=== PATIENT | female | born 1930 | race Caucasian/White ===

== ENCOUNTER 2020-04-27 20:24 | Inpatient (IN) | payer MEDICARE, MEDICAID ==
[~2020-04-27] VITALS: Ht 157.5 cm; Wt 64.4 kg
[~2020-04-27 20:24] MED LIST: ASPIR 8181 MG ORAL; DONEPEZIL HCL5 M2 ORAL; FAMOTIDINE20 MG ORAL; GEMFIBROZIL600 MG ORAL; GLIPIZIDE5 MG ORAL; GLUCOTROL5 MG ORAL; HYDROCHLOROTH12.5 MG ORAL; LANTUS5 UNITS SUBQ; LEVOTHYROXINE25 MCG ORAL; LOPRESSOR25 M1 ORAL; METOPROLOL SUCC25 MG ORAL; NIACIN500 M2 ORAL; NORVASC5 MG ORAL; OYSTER SHELL 51 EAC1 PO; VENLAFAXINE HC150 MG ORAL; ZOCOR20 M1 ORAL
[2020-04-27 20:30] VITALS: BP 156/62
--- NOTE | 2020-04-27 21:10 | NUR ---
Sister No called, left her phone numbers: [phone](cell) [phone](home). She also states that she is the deceision maker and would like to be notified of any changes. She also mentioned that patients is a DNR. At this pont I had connected her to to confirm DNR status. verified -DNR.
--- NOTE | 2020-04-27 21:26 | NUR ---
ED Nurse Note: Xray at bedside
--- NOTE | 2020-04-27 21:36 | Emergency Room Report ---
History of Present Illness General Chief Complaint: Generalized Weakness Source: Patient, Family Member, EMS Present Illness HPI 89-year-old female with past medical history of hypertension, diabetes, hypothyroidism, CKD, dyslipidemia presents from [facility] for syncope. Patient is DNR. Conservator is Sister Ankur ([phone]; [phone]) Patient states that earlier she felt dizziness and almost passed out. Also had a gradual headache and was nauseous but states that her symptoms have improved. EMS gave 100 cc NS bolus prior to arrival here due to hypotension SBP 80mmHg. Patient denies head trauma, slurred speech, nausea, vomiting, chest pain, back pain, abdominal pain, melena, hematochezia, dysuria, hematuria, flank pain, rash, neck pain or any other symptoms. Denies any changes to her medications. Patient is on Coreg 6.25 mg p.o. The patient's symptoms were gradual onset, severity was moderate, duration since 1 day. Quality: Generally weak Past medical history: Hypothyroidism, hypertension, dyslipidemia, dementia, CKD Past surgical history: Denies Smoking: Denies Alcohol use: Denies Drug use: Denies Review of systems: CONST: No fevers or chills, No night sweats PULMONARY: No productive cough, No shortness of breath CARDIAC: No chest pain, No palpitations GI: No vomiting, No diarrhea , No melena_or_BRBPR : No dysuria, No hematuria, No discharge NEURO: No new_focal_weakness_or_numbness, No confusion, No vision changes 14 point Review of Systems is otherwise negative except per HPI Physical Exam: GENERAL: Awake_alert_ nontoxic, no acute distress Spo2 97% on RA -normal EYES: Extraocular muscles are intact. Conjunctivae clear. Lids without swelling. Pale appearing ENT: External nose and ear normal_in_appearance. Oropharynx clear. Head_atraumatic, dry_oral_mucosa NECK: No JVD. No meningismus. No thyromegaly. Supple. Trachea midline RESP: Normal respiratory effort. Symmetric rise. No stridor. Clear_to_auscultation_No_rales_No_wheezes CARDIAC: bradycardic and regular rhytm. No_significant pedal edema. ABDOMEN: Soft. Nondistended. Nontender_No_rebound_or_guarding. MSK: Normal muscle tone, without rigidity. Extremities without asymmetric deformity or swelling. SKIN: Warm and dry. No visible cyanosis or pallor NEUROLOGIC: Alert, oriented x1. Motor_and_sensation_grossly_intact. No truncal ataxia. Gait_normal Psych: Normal mood and affect, normal judgment and insight - COORDINATION OF CARE Case was discussed with: Patient , Patient's Family , Patient's Physician Any labs and imaging that were ordered were interpreted as part of the medical decision making: Medical Decision Making/Plan: Differential diagnosis for the patients symptoms include , malignant arrhythmias, obstructive heart disease (critical aortic stenosis, hypertrophic cardiomyopathy), acute anemia, severe dehydration, electrolyte abnormalities, among others. Patient's exam shows she is generally weak, however has no focal neurologic deficits. EKG shows bradycardia with no signs of malignant arrhythmia such as Brugada syndrome, delta wave, epsilon wave, significant heart block, or QTc >500. CXR shows no acute disease. Troponin is negativex1. BNP was mildly elevated therefore will start mild diuresis in ED. Will have to avoid nitro in the setting of her hypotension prior to arrival. Furthermore, lipase was found to be high, however patient is not complaining of abdominal pain. Her abdominal exam is completely non tender. The patient denies any external blood loss and has no significant pallor or evidence of acute anemia as a cause of their symptoms. Hemoglobin is not severely low, and acute blood transfusion is not indicated. In addition, the patient has no loud murmur or evidence of significant obstructive heart disease, symptoms are not in the setting of exertion. The patient is neurologically intact, with normal cerebellar exam, without any evidence of central vertigo as a cause of their symptoms. They appear well hydrated without any evidence of severe dehydration or acute hypovolemia. However, given the patients risk factors, the patient would benefit from admission to observation for continuous cardiac monitoring, given the possibility of cardiac syncope. She is SF syncope criteria positive due to hypotension and cardiac hx. I spoke with Dr. Otoole, and reviewed the patients presentation, workup, results, and treatment. They will admit the patient for further care and evaluation, and assume care of the patient at this time. Allergies: Coded Allergies: PENICILLINS (Unverified Allergy, Unknown, 11/06/14) COVID-19 Screening Contact w/high risk pt: No Experienced COVID-19 symptoms?: No COVID-19 Testing performed EDUCATIONAL SPEECH LANGUAGE CLINICIAN: No Patient History Last Menstrual Period: UNK Now: No Nursing Documentation-PMH Hx Cardiac Problems: No Hx Hypertension: Yes Hx Diabetes: Yes Hx Cancer: No Hx Gastrointestinal Problems: No Hx Neurological Problems: No Physical Exam Vital Signs Date Time Temp Pulse Resp B/P (MAP) Pulse Ox O2 Delivery O2 Flow Rate FiO2 04/27/20 20:19 98.1 56 18 156/62 (93) 97 Room Air Sp02 EP Interpretation: reviewed, normal Medical Decision Making Diagnostic Impression: Primary Impression: Episode of generalized weakness Additional Impressions: Syncope Symptomatic bradycardia Pancreatitis Anemia Hypomagnesemia CKD (chronic kidney disease) EKG Diagnostic Results Troponin ordered: Yes When was troponin ordered?: Apr 27, 2020 THOR Pollard 12-lead EKG (interpreted by ) Time: 2045 Indication: Rhythm analysis Tracing visualized and Interpreted by me. Rhythm: Sinus bradycardia Rate: 56 bpm QTc: 443 Morphology: No_significant_ST_elevations_or_depressions, No STEMI Impression: Sinus bradycardia. Q waves V1 through V4 Rhythm Strip Diag. Results Rhythm Strip Time: 21:36 EP Interpretation: yes Rate: 56 Rhythm: no PVC's, no ectopy - Bradycardia Chest X-Ray Diagnostic Results Chest X-Ray Diagnostic Results : THOR Pollard Chest X-Ray: Views: [ 1 ] view(s) Indication: Syncope Findings: Normal heart size. Mediastinum normal. No Pna Impression: No acute disease The X-ray(s) were independently viewed and interpreted contemporaneously Electronically signed by Arely dunbar DO CT/MRI/US Diagnostic Results CT/MRI/US Diagnostic Results : Impression CT Head no Contrast EXAM: CT Head Without Intravenous Contrast COMPARISON: Head CT 11/06/2014 FINDINGS: Brain: No intracranial hemorrhage, mass-effect, or edema. Parenchymal atrophy. Mild chronic microvascular ischemic changes. Ventricles: Unremarkable. Bones/joints: Skull hyperostosis. No fracture. Soft tissues: Unremarkable. Sinuses: Unremarkable as visualized. Mastoid air cells: Unremarkable as visualized. IMPRESSION: 1. No acute intracranial abnormality. 2. Parenchymal atrophy. Mild chronic microvascular ischemic changes. Reevaluation Time: 22:20 Last Vital Signs Date Time Temp Pulse Resp B/P (MAP) Pulse Ox O2 Delivery O2 Flow Rate FiO2 04/27/20 20:19 98.1 56 18 156/62 (93) 97 Room Air Status: improved Disposition: ADMITTED INPATIENT Admit Decision Time: 22:20 Condition: Stable Referrals: NOT CHOSEN IPA/,REFERRING (PCP) Arely Arambula D.O. Apr 27, 2020 21:36
--- NOTE | 2020-04-27 21:38 | Diagnostic Imaging Report ---
EXAM: XR Chest, 1 View CLINICAL HISTORY: WEAK TECHNIQUE: Frontal view of the chest. COMPARISON: Chest x-ray 11/06/2014 FINDINGS: Lungs: Unremarkable. No consolidation. Pleural space: No pleural effusion. No pneumothorax. Heart: Unremarkable. No cardiomegaly. Bones/joints: Chronic fracture deformity of the right clavicle.. IMPRESSION: No acute cardiopulmonary abnormality.
--- NOTE | 2020-04-27 21:47 | NUR ---
ED Nurse Note: Pt to CT
--- NOTE | 2020-04-27 22:00 | NUR ---
ED Nurse Note: Pt back from CT
--- NOTE | 2020-04-27 22:12 | Diagnostic Imaging Report ---
EXAM: CT Head Without Intravenous Contrast CLINICAL HISTORY: SYNCOPE TECHNIQUE: Axial computed tomography images of the head/brain without intravenous contrast. CTDI is 53.4 mGy and DLP is 1018.8 mGy-cm. One or more of the following dose reduction techniques were used: automated exposure control, adjustment of the mA and/or kV according to patient size, use of iterative reconstruction technique. COMPARISON: Head CT 11/06/2014 FINDINGS: Brain: No intracranial hemorrhage, mass-effect, or edema. Parenchymal atrophy. Mild chronic microvascular ischemic changes. Ventricles: Unremarkable. Bones/joints: Skull hyperostosis. No fracture. Soft tissues: Unremarkable. Sinuses: Unremarkable as visualized. Mastoid air cells: Unremarkable as visualized. IMPRESSION: 1. No acute intracranial abnormality. 2. Parenchymal atrophy. Mild chronic microvascular ischemic changes.
[2020-04-27 22:20] LABS: BASOPHILS % (AUTO) 0.8 % (0.0-2.0); EOSINOPHILS % (AUTO) 1.9 % (0.0-3.0); HEMATOCRIT 28.7 % (37.0-47.0); HEMOGLOBIN 9.7 G/DL (12.0-16.0); LYMPHOCYTES % (AUTO) 17.4 % (20.0-45.0); MEAN CORPUSCULAR VOLUME 90 FL (80-99); MONOCYTES % (AUTO) 10.4 % (1.0-10.0); NEUTROPHILS % (AUTO) 69.6 % (45.0-75.0); PLATELET COUNT 151 K/UL (150-450); RED BLOOD COUNT 3.19 M/UL (4.20-5.40); RED CELL DISTRIBUTION WIDTH 12.9 % (11.6-14.8); WHITE BLOOD COUNT 6.2 K/UL (4.8-10.8)
[2020-04-27 22:38] LABS: ALANINE AMINOTRANSFERASE 90 U/L (12-78); ALBUMIN 2.9 G/DL (3.4-5.0); ALKALINE PHOSPHATASE 105 U/L (46-116); ASPARTATE AMINO TRANSFERASE 96 U/L (15-37); BILIRUBIN,TOTAL 0.4 MG/DL (0.2-1.0); BLOOD UREA NITROGEN 29 mg/dL (7-18); CALCIUM 9.2 MG/DL (8.5-10.1); CARBON DIOXIDE 25 MMOL/L (21-32); CHLORIDE 103 MMOL/L (98-107); CREATINE KINASE 32 U/L (26-308); CREATININE 1.5 MG/DL (0.55-1.30); POTASSIUM 4.2 MMOL/L (3.5-5.1); SODIUM 137 MMOL/L (136-145)
[2020-04-27] MEDS ORDERED: LORazepam Inj 2mg/ml 1ml IV ONE (22:45)
[2020-04-27 23:18] LABS: APPEARANCE,URINE CLEAR; BILIRUBIN, URINE NEGATIVE (NEGATIVE); COLOR,URINE YELLOW; GLUCOSE, URINE (UA) NEGATIVE (NEGATIVE); KETONES,URINE NEGATIVE (NEGATIVE); LEUKOCYTE ESTERASE ,URINE NEGATIVE (NEGATIVE); NITRITE,URINE NEGATIVE (NEGATIVE); PH,URINE 6 (4.5-8.0); PROTEIN,URINE 3+ (NEGATIVE); UROBILINOGEN,URINE NORMAL MG/DL (0.0-1.0)
--- NOTE | 2020-04-28 | NUR ---
ED Nurse Note: Pt resting in bed with eyes closed, non-labored breathing, no signs of distress. will continue to monitor
--- NOTE | 2020-04-28 02:00 | NUR ---
ED Nurse Note: Pt resting in bed with eyes closed, non-labored breathing, no signs of distress, will continue to monitor
--- NOTE | 2020-04-28 05:30 | NUR ---
ED Nurse Note: Pt changed and cleaned, skin intact, will continue to monitor
--- NOTE | 2020-04-28 07:19 | NUR ---
ED Nurse Note: received report from Shahrzad ORTEZ. pt is calm and resting in bed, vss, on security monitor.
[2020-04-28 07:20] VITALS: BP 151/75
--- NOTE | 2020-04-28 07:47 | NUR ---
ED Nurse Note: gave report to Orquidea RN
--- NOTE | 2020-04-28 07:50 | NUR ---
TRANSFER TO FLOOR: Patient transferred to [facility] via gurney as ordered, per dr. gaxiola. Report given to Orquidea ORTEZ. Belongings sent with patient
[2020-04-28 08:00] VITALS: BP 178/71
--- NOTE | 2020-04-28 08:00 | NUR ---
NURSE NOTES: Admitted patient from ED, report given by Ketan ORTEZ. Transferred to bed. engine monitor placed. IV line on right hand g22 intact and patent. Oriented to room and call light. Vital signs taken and recorded. A and o x 1-2, confused. Skin intact, with redness on perianal area, pictures taken. Belongings accounted for. HOB elevated. Bed locked in low position. Call light within reach. Will continue plan of care.
[2020-04-28] MEDS ORDERED: HydrALAZINE 25mg tab ORAL ONE (08:30)
--- NOTE | 2020-04-28 09:00 | NUR ---
NURSE NOTES: Swabs for MRSA, CRE, VRE done and sent to lab.
[2020-04-28] MEDS ORDERED: Acetaminophen 500mg (ES) tab ORAL PRN (10:45)
--- NOTE | 2020-04-28 11:00 | NUR ---
NURSE NOTES: Patient refused lab draw, Dr Otoole made aware and insisted to try again. Lab made aware, spoke with Abby.
[2020-04-28 12:00] VITALS: BP 129/81
--- NOTE | 2020-04-28 13:00 | NUR ---
NURSE NOTES: Patient non compliant with care, gets up and walks in the hallway saying she wants to go home. Noted with resistive behavior and angry tone of voice. Dr Otoole made aware. Charge nurse aware.
[2020-04-28] MEDS ORDERED: Haloperidol 5mg/ml Inj IM PRN (13:45)
--- NOTE | 2020-04-28 13:57 | History & Physical ---
History and Physical History & Physicial [id number] David Otoole MD Apr 28, 2020 13:57
--- NOTE | 2020-04-28 15:08 | Consultation ---
History of Present Illness General Date patient seen: Apr 28, 2020 Reason for Hospitalization: Generalized Weakness Present Illness HPI 89 year old female admitted for evaluation of abdominal pain noted to have abnormal lft's and elevated lipase with associated abdominal pain. surgery called to evaluate and assist with care. case discussed with pcp patient state she was eating well but recently had a meal and felt discomfort which has gotten a bit better since admission. currently no nv/f/c. labs reviewed. states she wants to get into a chair Allergies: Coded Allergies: PENICILLINS (Unverified Allergy, Unknown, 11/06/14) COVID-19 Screening Contact w/high risk pt: No Experienced COVID-19 symptoms?: No Medication History Scheduled Amlodipine Besylate (Norvasc), 5 MG ORAL BID Aspirin* (Aspir 81*), 81 MG ORAL DAILY, (Reported) Calcium Carbonate/Vitamin D3 (Oyster Shell 500 Mg + Vit D Tb), 1 EACH PO DAILY, (Reported) Donepezil Hcl* (Donepezil Hcl*), 5 MG ORAL DAILY, (Reported) Famotidine* (Pepcid 20mg tablet*), 20 MG ORAL DAILY, (Reported) Gemfibrozil (Gemfibrozil*), 600 MG ORAL BID, (Reported) Glipizide* (Glucotrol*), 5 MG ORAL BID Insulin Glargine (Lantus), 0 SUBQ BEDTIME, (Reported) Levothyroxine Sodium* (Levothyroxine Sodium*), 25 MCG ORAL DAILY, (Reported) Metoprolol Succinate* (Metoprolol Succinate*), 25 MG ORAL DAILY, (Reported) Metoprolol Tartrate (Metoprolol Tartrate), 25 MG ORAL Q12HR Simvastatin (Zocor), 20 MG ORAL BEDTIME, (Reported) Venlafaxine Hcl* (Venlafaxine Hcl Er*), 150 MG ORAL DAILY, (Reported) Patient History Limited by: age, medical condition History Provided By: Medical Record, PMD Healthcare decision maker Resuscitation status Advanced Directive on File Past Medical/Surgical History Past Medical/Surgical History: (1) Arrhythmia (2) Fall (3) CHF (congestive heart failure) (4) Hypomagnesemia (5) Anemia (6) CKD (chronic kidney disease) (7) Episode of generalized weakness (8) Pancreatitis (9) Symptomatic bradycardia (10) Syncope Review of Systems Review of Symptoms General ROS: no weight loss or fever Psychological ROS: no depression or mood changes, no memory loss Ophthalmic ROS: no visual changes or eye irritation ENT ROS: no nasal congestion, hearing loss, dizziness Allergy and Immunology ROS: no allergic symptoms or urticaria Hematological and Lymphatic ROS: no swollen glands, unusual bleeding or bruising Endocrine ROS: no polyuria, polydipsia, weight changes, temperature intolerance Respiratory ROS: no cough, shortness of breath, or wheezing Cardiovascular ROS: no chest pain or dyspnea on exertion Gastrointestinal ROS: denies abdominal pain, bright red blood in stool. Musculoskeletal ROS: no myalgias or arthralgias Neurological ROS: no TIA or stroke symptoms Dermatological ROS: no new or changing skin lesions, rashes or pruritis limited Physical Exam Physical Exam General appearance: alert, no distress, appears stated age Head: Normocephalic, without obvious abnormality, atraumatic Eyes: conjunctivae/corneas clear. PERRL, EOM's intact. Fundi benign Throat: Lips, mucosa, and tongue normal. Teeth and gums normal Neck: supple, symmetrical, trachea midline, no adenopathy, thyroid: not enlarged, symmetric, no tenderness/mass/nodules, no carotid bruit and no JVD Lungs: clear to auscultation bilaterally Heart: regular rate and rhythm, S1, S2 normal, no murmur, click, rub or gallop Abdomen: soft, non-tender. Bowel sounds normal. No masses, no organomegaly Extremities: extremities normal, atraumatic, no cyanosis or edema Pulses: 2+ and symmetric Skin: Skin color, texture, turgor normal. No rashes or lesions Neurologic: Grossly normal Last 24 Hour Vital Signs Date Time Temp Pulse Resp B/P (MAP) Pulse Ox O2 Delivery O2 Flow Rate FiO2 04/28/20 12:00 96.7 61 19 129/81 (97) 97 04/28/20 11:12 63 178/71 04/28/20 09:00 Room Air 04/28/20 08:42 Room Air 04/28/20 08:35 178/71 04/28/20 08:00 61 04/28/20 08:00 98.6 63 16 178/71 (106) 98 04/28/20 07:50 98.3 74 16 151/75 99 Room Air 04/28/20 07:20 98.3 74 16 151/75 99 Room Air 04/27/20 22:37 73 14 161/70 100 04/27/20 20:30 56 18 Room Air 04/27/20 20:30 98.1 56 18 156/62 97 Room Air 04/27/20 20:19 98.1 56 18 156/62 (93) 97 Room Air Laboratory Tests Test 04/27/20 21:15 04/27/20 22:20 White Blood Count 6.2 K/UL (4.8-10.8) Red Blood Count 3.19 M/UL (4.20-5.40) L Hemoglobin 9.7 G/DL (12.0-16.0) L Hematocrit 28.7 % (37.0-47.0) L Mean Corpuscular Volume 90 FL (80-99) Mean Corpuscular Hemoglobin 30.5 PG (27.0-31.0) Mean Corpuscular Hemoglobin Concent 33.9 G/DL (32.0-36.0) Red Cell Distribution Width 12.9 % (11.6-14.8) Platelet Count 151 K/UL (150-450) Mean Platelet Volume 7.7 FL (6.5-10.1) Neutrophils (%) (Auto) 69.6 % (45.0-75.0) Lymphocytes (%) (Auto) 17.4 % (20.0-45.0) L Monocytes (%) (Auto) 10.4 % (1.0-10.0) H Eosinophils (%) (Auto) 1.9 % (0.0-3.0) Basophils (%) (Auto) 0.8 % (0.0-2.0) Sodium Level 137 MMOL/L (136-145) Potassium Level 4.2 MMOL/L (3.5-5.1) Chloride Level 103 MMOL/L (98-107) Carbon Dioxide Level 25 MMOL/L (21-32) Blood Urea Nitrogen 29 mg/dL (7-18) H Creatinine 1.5 MG/DL (0.55-1.30) H Estimat Glomerular Filtration Rate 32.9 mL/min (>60) Glucose Level 178 MG/DL (74-106) H Calcium Level 9.2 MG/DL (8.5-10.1) Magnesium Level 1.0 MG/DL (1.8-2.4) L Total Bilirubin 0.4 MG/DL (0.2-1.0) Aspartate Amino Transf (AST/SGOT) 96 U/L (15-37) H Alanine Aminotransferase (ALT/SGPT) 90 U/L (12-78) H Alkaline Phosphatase 105 U/L (46-116) Total Creatine Kinase 32 U/L (26-308) Troponin I 0.018 ng/mL (0.000-0.056) Pro-B-Type Natriuretic Peptide 1310 pg/mL (0-125) H Total Protein 5.8 G/DL (6.4-8.2) L Albumin 2.9 G/DL (3.4-5.0) L Globulin 2.9 g/dL Albumin/Globulin Ratio 1.0 (1.0-2.7) Lipase 1180 U/L (73-393) H Thyroid Stimulating Hormone (TSH) 1.458 uiU/mL (0.358-3.740) Urine Color Yellow Urine Appearance Clear Urine pH 6 (4.5-8.0) Urine Specific [place] 1.010 (1.005-1.035) Urine Protein 3+ (NEGATIVE) H Urine Glucose (UA) Negative (NEGATIVE) Urine Ketones Negative (NEGATIVE) Urine Blood Negative (NEGATIVE) Urine Nitrite Negative (NEGATIVE) Urine Bilirubin Negative (NEGATIVE) Urine Urobilinogen Normal MG/DL (0.0-1.0) Urine Leukocyte Esterase Negative (NEGATIVE) Urine RBC 0-2 /HPF (0 - 2) Urine WBC 0-2 /HPF (0 - 2) Urine Squamous Epithelial Cells Few /LPF (NONE/OCC) Urine Bacteria Few /HPF (NONE) Height (Feet): 5 Height (Inches): 2.00 Weight (Pounds): 142 Medications Current Medications Medications (Trade) Dose Ordered Sig/Allen Route PRN Reason Start Time Stop Time Status Last Admin Dose Admin Acetaminophen (Tylenol) 500 mg Q4H PRN ORAL Mild Pain (Pain Scale 1-3) 04/28/20 10:45 05/28/20 10:44 Amlodipine Besylate (Norvasc) 5 mg BID ORAL 04/28/20 11:00 05/28/20 10:59 04/28/20 11:12 Aspirin (Ecotrin) 81 mg DAILY ORAL 04/29/20 09:00 06/13/20 08:59 Docusate Sodium (Colace) 100 mg TWICE A DAY ORAL 04/28/20 18:00 05/28/20 17:59 Haloperidol Lactate (Haldol) 2 mg Q4H PRN IM Agitation 04/28/20 13:45 06/12/20 13:44 Levothyroxine Sodium (Synthroid) 25 mcg DAILY ORAL 04/29/20 09:00 05/29/20 08:59 Magnesium Sulfate 100 ml @ 100 mls/hr Q1H IVPB 04/28/20 14:00 04/28/20 17:59 04/28/20 14:08 Pantoprazole (Protonix) 40 mg BID ORAL 04/28/20 11:00 05/29/20 10:59 04/28/20 11:11 Venlafaxine HCl (Effexor-XR) 150 mg DAILY ORAL 04/29/20 09:00 07/28/20 08:59 Assessment/Plan Problem List: (1) CHF (congestive heart failure) ICD Codes: I50.9 - Heart failure, unspecified SNOMED: 81334564 (2) Hypomagnesemia ICD Codes: E83.42 - Hypomagnesemia SNOMED: 473061588 (3) Anemia ICD Codes: D64.9 - Anemia, unspecified SNOMED: 721107288 (4) CKD (chronic kidney disease) ICD Codes: N18.9 - Chronic kidney disease, unspecified SNOMED: 480064712 (5) Episode of generalized weakness ICD Codes: R53.1 - Weakness SNOMED: 09620458, 659310266 (6) Arrhythmia ICD Codes: I49.9 - Cardiac arrhythmia, unspecified SNOMED: 33030648 (7) Pancreatitis Assessment & Plan: 89F with pancreatitis and elevated lft's etiology of pancreatitis work up npo iv fluids iv abx US abd ordered trend labs will follow with recs thank you ICD Codes: K85.90 - Acute pancreatitis without necrosis or infection, unspecified SNOMED: 38439758 (8) Syncope ICD Codes: R55 - Syncope and collapse SNOMED: 346486841, 372733749 (9) Fall ICD Codes: W19.XXXA - Unspecified fall, initial encounter SNOMED: 1980101 (10) Symptomatic bradycardia ICD Codes: R00.1 - Bradycardia, unspecified SNOMED: 33784709, 098100605 Geoff Welsh Apr 28, 2020 15:08
--- NOTE | 2020-04-28 15:29 | Cardiac Electrophysiology PN ---
Subjective Subjective [id number] Objective Last 24 Hour Vital Signs Date Time Temp Pulse Resp B/P (MAP) Pulse Ox O2 Delivery O2 Flow Rate FiO2 04/28/20 12:00 96.7 61 19 129/81 (97) 97 04/28/20 11:12 63 178/71 04/28/20 09:00 Room Air 04/28/20 08:42 Room Air 04/28/20 08:35 178/71 04/28/20 08:00 61 04/28/20 08:00 98.6 63 16 178/71 (106) 98 04/28/20 07:50 98.3 74 16 151/75 99 Room Air 04/28/20 07:20 98.3 74 16 151/75 99 Room Air 04/27/20 22:37 73 14 161/70 100 04/27/20 20:30 56 18 Room Air 04/27/20 20:30 98.1 56 18 156/62 97 Room Air 04/27/20 20:19 98.1 56 18 156/62 (93) 97 Room Air Laboratory Tests Test 04/27/20 21:15 04/27/20 22:20 White Blood Count 6.2 K/UL (4.8-10.8) Red Blood Count 3.19 M/UL (4.20-5.40) L Hemoglobin 9.7 G/DL (12.0-16.0) L Hematocrit 28.7 % (37.0-47.0) L Mean Corpuscular Volume 90 FL (80-99) Mean Corpuscular Hemoglobin 30.5 PG (27.0-31.0) Mean Corpuscular Hemoglobin Concent 33.9 G/DL (32.0-36.0) Red Cell Distribution Width 12.9 % (11.6-14.8) Platelet Count 151 K/UL (150-450) Mean Platelet Volume 7.7 FL (6.5-10.1) Neutrophils (%) (Auto) 69.6 % (45.0-75.0) Lymphocytes (%) (Auto) 17.4 % (20.0-45.0) L Monocytes (%) (Auto) 10.4 % (1.0-10.0) H Eosinophils (%) (Auto) 1.9 % (0.0-3.0) Basophils (%) (Auto) 0.8 % (0.0-2.0) Sodium Level 137 MMOL/L (136-145) Potassium Level 4.2 MMOL/L (3.5-5.1) Chloride Level 103 MMOL/L (98-107) Carbon Dioxide Level 25 MMOL/L (21-32) Blood Urea Nitrogen 29 mg/dL (7-18) H Creatinine 1.5 MG/DL (0.55-1.30) H Estimat Glomerular Filtration Rate 32.9 mL/min (>60) Glucose Level 178 MG/DL (74-106) H Calcium Level 9.2 MG/DL (8.5-10.1) Magnesium Level 1.0 MG/DL (1.8-2.4) L Total Bilirubin 0.4 MG/DL (0.2-1.0) Aspartate Amino Transf (AST/SGOT) 96 U/L (15-37) H Alanine Aminotransferase (ALT/SGPT) 90 U/L (12-78) H Alkaline Phosphatase 105 U/L (46-116) Total Creatine Kinase 32 U/L (26-308) Troponin I 0.018 ng/mL (0.000-0.056) Pro-B-Type Natriuretic Peptide 1310 pg/mL (0-125) H Total Protein 5.8 G/DL (6.4-8.2) L Albumin 2.9 G/DL (3.4-5.0) L Globulin 2.9 g/dL Albumin/Globulin Ratio 1.0 (1.0-2.7) Lipase 1180 U/L (73-393) H Thyroid Stimulating Hormone (TSH) 1.458 uiU/mL (0.358-3.740) Urine Color Yellow Urine Appearance Clear Urine pH 6 (4.5-8.0) Urine Specific [place] 1.010 (1.005-1.035) Urine Protein 3+ (NEGATIVE) H Urine Glucose (UA) Negative (NEGATIVE) Urine Ketones Negative (NEGATIVE) Urine Blood Negative (NEGATIVE) Urine Nitrite Negative (NEGATIVE) Urine Bilirubin Negative (NEGATIVE) Urine Urobilinogen Normal MG/DL (0.0-1.0) Urine Leukocyte Esterase Negative (NEGATIVE) Urine RBC 0-2 /HPF (0 - 2) Urine WBC 0-2 /HPF (0 - 2) Urine Squamous Epithelial Cells Few /LPF (NONE/OCC) Urine Bacteria Few /HPF (NONE) Jose J Hurley MD Apr 28, 2020 15:29
[2020-04-28] MEDS ORDERED: MUCINEX600 MG PO (15:49)
[2020-04-28] MEDS ORDERED: METFORMIN HCL500 M1 ORAL (15:49)
[2020-04-28] MEDS ORDERED: HYDROCHLOROTHIA50 MG ORAL (15:49)
[2020-04-28] MEDS ORDERED: ATORVASTATIN CA80 MG ORAL (15:49)
[2020-04-28] MEDS ORDERED: MULTIVITAMINS1 EA13 ORAL (15:49)
[2020-04-28] MEDS ORDERED: METOPROLOL TART25 MG ORAL (15:49)
[2020-04-28] MEDS ORDERED: CARVEDILOL6.25 MG ORAL (15:49)
[2020-04-28] MEDS ORDERED: ATIVAN0.5 MG ORAL (15:49)
[2020-04-28] MEDS ORDERED: LOSARTAN POTASS50 MG ORAL (15:49)
[2020-04-28] MEDS ORDERED: DIABETIC T100 MG/5 M PO (15:49)
[2020-04-28] MEDS ORDERED: CITALOPRAM HBR40 M1 ORAL (15:49)
[2020-04-28] MEDS ORDERED: ACETAMINOPHEN325 M1 ORAL (15:49)
[2020-04-28] MEDS ORDERED: POTASSIUM CHLO20 ME1 ORAL (15:49)
[2020-04-28] MEDS ORDERED: ELIQUIS2.5 MG ORAL (15:49)
[2020-04-28 16:00] VITALS: BP 123/80
--- NOTE | 2020-04-28 16:14 | History and Physical Report ---
DATE OF ADMISSION: 04/27/2020 LOCATION: The patient is seen in room 219. HISTORY OF PRESENT ILLNESS AND CHIEF COMPLAINT: The patient is 89-year-old female, a resident of [facility]. She was brought in by paramedics for generalized weakness. Past history of the patient is significant for hypertension, diabetes, hypothyroidism, chronic kidney disease, and dyslipidemia. The patient is DNR and has a conservator named Sister Danielle. The patient apparently felt dizzy earlier today and passed out and she had some headaches and had nausea, but her symptoms improved after the paramedics gave her some IV bolus of saline. At that time, the patient had hypotension of 80 mmHg. The patient was denying slurred speech, nausea, vomiting, chest pain, back pain, and after initial evaluation in the emergency room, the patient admitted for further management. COVID-19 screening has been negative when done in the [facility] and in the emergency room, the blood pressure flora after initial IV bolus to 156/62. ALLERGIES: Allergies of the patient are to penicillin. MEDICATIONS: Medication list includes calcium, Aricept, Pepcid, gemfibrozil, Glucotrol, metoprolol, insulin, Zocor, amlodipine, aspirin, Synthroid, and venlafaxine which is Effexor. PHYSICAL EXAMINATION: GENERAL: The patient is not in any distress. She is confused. VITAL SIGNS: Temperature 96.7, pulse rate 61, and blood pressure earlier was 178/71 down to 129/81. HEENT: Head is normocephalic. Sclerae not icteric. NECK: Neck is full. No thyromegaly. LUNGS: Decreased breath sounds over the bases. HEART: Somewhat bradycardic. ABDOMEN: Obese and nontender. EXTREMITIES: Lower extremities, no edema. DJD changes are present. LABORATORY DATA: Hemoglobin 9.7, white BC 6.2. Lipase 1180. TSH 1.45. Electrolytes normal. Creatinine 1.5, BUN 29, and magnesium level is 1. IMPRESSION: This is an 89-year-old female, who is a resident of [facility], brought into emergency room for generalized weakness and at that time was hypotensive with blood pressure of 80 mmHg systolic and bradycardia, heart rate of 50s. After the bolus of normal saline, the blood pressure improved. The patient also has lipase of 1100; however, abdominal examination is normal. The patient most likely has dehydration since also the BUN and creatinine are elevated. Nevertheless, the patient is known to have underlying kidney disease. The patient's serum magnesium is also low and the patient has anemia and blood sugar of 178 with history of diabetes. The patient also has history of low cognition, dementia, and hypothyroidism. PLAN: I held the beta-donnie and started the patient on amlodipine and hydralazine for blood pressure control. Meanwhile, we will give magnesium supplement, slow hydration, and with regard to the high lipase and bradycardia, I have asked the proper consultants to evaluate the patient. According to how the patient's condition evolves, we will make the proper changes in our future management. David Otoole M.D. DR: Lexa JOB#: [id number] CC:
--- NOTE | 2020-04-28 16:45 | Consultation ---
DATE OF CONSULTATION: 04/28/2020 CARDIOLOGY CONSULTATION CONSULTING PHYSICIAN: Jose J Hurley MD REFERRING PHYSICIAN: David Otoole MD REASON FOR CONSULTATION: bradycardia and presyncope. HISTORY OF PRESENT ILLNESS: Patient is a very pleasant 89, lady with history of hypertension, diabetes, hypothyroidism, dyslipidemia, and chronic kidney disease who was transferred from [facility] for a syncopal episode. Patient's conservator is sister, Danielle at #[phone] and at #[phone]. Patient apparently was brought to the emergency room as she felt dizzy and almost passed out. Paramedics gave the patient normal saline bolus as the blood pressure was in the 80s. Patient is on Coreg 6.25 mg b.i.d. Patient was bradycardic with heart was mostly in the 50s. Patient was admitted and Cardiology consultation was obtained for further evaluation and management. REVIEW OF SYSTEMS: Negative other than what was mentioned in the history of present illness. PAST MEDICAL HISTORY: As mentioned above. FAMILY HISTORY: Noncontributory. SOCIAL HISTORY: She lives in a fpc. Does not smoke or drink alcohol. PHYSICAL EXAMINATION: VITAL SIGNS: Blood pressure is 129/81, was as high as 172/71, pulse 61, respirations 18, temperature 96.7. HEAD AND NECK: Showed no JVD. LUNGS: Clear. CARDIOVASCULAR: Shows regular S1 and S2 with no gallop or murmur. ABDOMEN: Soft. EXTREMITIES: No pitting edema. LABORATORY AND DIAGNOSTIC DATA: EKG shows sinus bradycardia in the 50s. Labs show white count of 6.2, hemoglobin 9.7, hematocrit 28.7, and platelet count 151. Sodium 137, potassium 4.2, BUN of 29, creatinine 1.5, and glucose of 178. The first troponin is negative. BNP is 1310. ASSESSMENT AND PLAN: 1. Symptomatic bradycardia. Patient was on Coreg that was discontinued. We will watch patient on telemetry and hopefully this will resolve. We will also get an echocardiogram to evaluate for ejection fraction and wall motion abnormality. 2. Hypertension. Patient is on amlodipine 5 mg b.i.d. 3. Hypothyroidism, on Synthroid. 4. Renal failure and azotemia, on IV fluids per Dr. Otoole. 5. Hypomagnesemia. 6. Generalized weakness. 7. Elevated BNP, possible congestive heart failure. Echocardiogram is pending. 8. Elevated liver function tests, possible pancreatitis. Further evaluation by Dr. Welsh. Thank you very much for allowing me to participate in the care of this patient. Please do not hesitate to contact me for any questions regarding my evaluation. Jose J Hurley M.D. DR: VINAY JOB#: [id number] CC:
--- NOTE | 2020-04-28 17:08 | NUR ---
NURSE NOTES: Patient found without IV line. For reinsertion.
[2020-04-28] MEDS: Docusate 100mg cap ORAL SCH (17:13)
--- NOTE | 2020-04-28 17:41 | NUR ---
NURSE NOTES: IV line reinserted to left hand g20, wrapped with kerlix.
--- NOTE | 2020-04-28 18:12 | NUR ---
NURSE HAND-OFF REPORT: Important Events on Shift:admission; pulling out patient monitor and IV line, uncooperative Patient Status: confused Diet: cardiac Pending Orders: 2d echo, abd US 04/29 Pending Results/Labs:mrsa, vre, cre Pending MD notification: Latest Vital Signs: Temperature 98.8 , Pulse 87 , B/P 123 /80 , Respiratory Rate 19 , O2 SAT 96 , Room Air, O2 Flow Rate . Vital Sign Comment: EKG Rhythm: Sinus Rhythm Rhythm change?: N MD Notified?: - MD Response: Latest Snider Fall Score: 35 Fall Risk: Medium Risk Safety Measures: Call light Within Reach, Bed Alarm Zone 1, Side Rails Side Rails x2, Bed position Low and Locked. Fall Precautions: Yellow Socks . Addendum: 04/28/20 at 1939 by Orquidea Boo RN HAND-OFF: Report given to Marguerite ORTEZ.
--- NOTE | 2020-04-28 19:43 | NUR ---
NURSE NOTES: Patient received from Orquidea RN. Patient in stable condition. Comfortable in bed, sleeping. No s/s of distress. No c/o pain. IV site patent and intact on Left Hand 20G. Noted to be NPO @ midnight for abdominal ultrasound tomorrow. Saturating well on room air. Bed in lowest position and locked. Call light and bedside table within reach. Bed alarm on. Will continue plan of care.
[2020-04-28 20:00] VITALS: BP 120/57
[2020-04-29] VITALS: BP 123/63
[2020-04-29 04:00] VITALS: BP 152/67
[2020-04-29 08:00] VITALS: BP 169/55
--- NOTE | 2020-04-29 08:30 | General Progress Note ---
Subjective Date patient seen: Apr 29, 2020 ROS Limited/Unobtainable: Yes Allergies: Coded Allergies: PENICILLINS (Unverified Allergy, Unknown, 11/06/14) Objective Last 24 Hour Vital Signs Date Time Temp Pulse Resp B/P (MAP) Pulse Ox O2 Delivery O2 Flow Rate FiO2 04/29/20 04:00 69 04/29/20 04:00 96.5 69 18 152/67 (95) 97 04/29/20 00:00 60 04/29/20 00:00 97.2 60 18 123/63 (83) 97 04/28/20 21:00 Room Air 04/28/20 20:00 97.5 64 18 120/57 (78) 96 04/28/20 20:00 64 04/28/20 17:12 87 123/80 04/28/20 16:00 98.8 87 19 123/80 (94) 96 04/28/20 16:00 66 04/28/20 12:00 96.7 61 19 129/81 (97) 97 04/28/20 12:00 66 04/28/20 11:12 63 178/71 04/28/20 09:00 Room Air 04/28/20 08:42 Room Air 04/28/20 08:35 178/71 Intake and Output 04/28/20 04/29/20 19:00 07:00 Intake Total 0 ml Balance 0 ml Intake Oral 0 ml # Voids 1 Current Medications Medications (Trade) Dose Ordered Sig/Allen Route PRN Reason Start Time Stop Time Status Last Admin Dose Admin Acetaminophen (Tylenol) 500 mg Q4H PRN ORAL Mild Pain (Pain Scale 1-3) 04/28/20 10:45 05/28/20 10:44 Amlodipine Besylate (Norvasc) 5 mg BID ORAL 04/28/20 11:00 05/28/20 10:59 04/28/20 17:12 Aspirin (Ecotrin) 81 mg DAILY ORAL 04/29/20 09:00 06/13/20 08:59 Docusate Sodium (Colace) 100 mg TWICE A DAY ORAL 04/28/20 18:00 05/28/20 17:59 04/28/20 17:13 Haloperidol Lactate (Haldol) 2 mg Q4H PRN IM Agitation 04/28/20 13:45 06/12/20 13:44 04/28/20 15:27 Levothyroxine Sodium (Synthroid) 25 mcg DAILY ORAL 04/29/20 09:00 05/29/20 08:59 Pantoprazole (Protonix) 40 mg BID ORAL 04/28/20 11:00 05/29/20 10:59 04/28/20 17:12 Venlafaxine HCl (Effexor-XR) 150 mg DAILY ORAL 04/29/20 09:00 07/28/20 08:59 None of the blood work ordered for yesterday was drawn Height (Feet): 5 Height (Inches): 2.00 Weight (Pounds): 142 General Appearance: no apparent distress Cardiovascular: other - Variable rate Respiratory/Chest: decreased breath sounds Abdomen: distended Assessment/Plan Problem List: (1) Symptomatic bradycardia ICD Codes: R00.1 - Bradycardia, unspecified SNOMED: 07161891, 201280462 (2) CKD (chronic kidney disease) ICD Codes: N18.9 - Chronic kidney disease, unspecified SNOMED: 737798929 (3) Syncope ICD Codes: R55 - Syncope and collapse SNOMED: 202208753, 334544248 (4) Arrhythmia ICD Codes: I49.9 - Cardiac arrhythmia, unspecified SNOMED: 11382957 (5) Hypomagnesemia ICD Codes: E83.42 - Hypomagnesemia SNOMED: 893188443 (6) Anemia ICD Codes: D64.9 - Anemia, unspecified SNOMED: 370616706 Status Narrative 1. Symptomatic bradycardia. Patient was on Coreg that was discontinued. We will watch patient on telemetry and hopefully this will resolve. We will also get an echocardiogram to evaluate for ejection fraction and wall motion abnormality. 2. Hypertension. Patient is on amlodipine 5 mg b.i.d. 3. Hypothyroidism, on Synthroid. 4. Renal failure and azotemia, on IV fluids per Dr. Otoole. 5. Hypomagnesemia. 6. Generalized weakness. 7. Elevated BNP, possible congestive heart failure. Echocardiogram is pending. 8. Elevated liver function tests, possible pancreatitis. Further evaluation by Dr. Welsh. Assessment/Plan: Discussed with RN and the need to do the blood draw today as soon as possible Continue per consultants Will discuss the plan with the patient's responsible republican Patient remains DNR Continue per orders David Otoole MD Apr 29, 2020 08:29
[2020-04-29] MEDS: Docusate 100mg cap ORAL SCH ×2 (08:46→17:43)
[2020-04-29] MEDS: Venlafaxine XR 150mg cap ORAL SCH (08:46)
[2020-04-29] MEDS: Aspirin EC 81mg tab ORAL SCH (08:46)
[2020-04-29] MEDS: Levothyroxine 25mcg tab ORAL SCH (08:47)
[2020-04-29 08:49] LABS: BASOPHILS % (AUTO) 0.6 % (0.0-2.0); EOSINOPHILS % (AUTO) 2.2 % (0.0-3.0); HEMATOCRIT 30.8 % (37.0-47.0); HEMOGLOBIN 10.7 G/DL (12.0-16.0); LYMPHOCYTES % (AUTO) 20.2 % (20.0-45.0); MEAN CORPUSCULAR VOLUME 87 FL (80-99); MONOCYTES % (AUTO) 8.5 % (1.0-10.0); NEUTROPHILS % (AUTO) 68.6 % (45.0-75.0); PLATELET COUNT 175 K/UL (150-450); RED BLOOD COUNT 3.56 M/UL (4.20-5.40); RED CELL DISTRIBUTION WIDTH 14.6 % (11.6-14.8); WHITE BLOOD COUNT 6.3 K/UL (4.8-10.8)
[2020-04-29 09:17] LABS: ALBUMIN 3.2 G/DL (3.4-5.0); BILIRUBIN,TOTAL 0.6 MG/DL (0.2-1.0); CALCIUM 9.2 MG/DL (8.5-10.1); CREATININE 1.5 MG/DL (0.55-1.30); POTASSIUM 3.4 MMOL/L (3.5-5.1)
--- NOTE | 2020-04-29 11:30 | NUR ---
NURSE NOTES: Received pt in bed, AAO x 1. On RA. IV on L hand 20g noted, with SL. Bed in the lowest and locked. Call light within reach. Will continue to monitor
--- NOTE | 2020-04-29 11:32 | NUR ---
NURSE HAND-OFF REPORT: Important Events on Shift:[] Patient Status: [Stable] Diet: [Cardiac DIet] Pending Orders: [] Pending Results/Labs:[] Pending MD notification:[] Latest Vital Signs: Temperature 98.5 , Pulse 82 , B/P 169 /55 , Respiratory Rate 18 , O2 SAT 97 , Room Air, O2 Flow Rate . Vital Sign Comment: [] EKG Rhythm: Sinus Rhythm Rhythm change?: N MD Notified?: - MD Response: Latest Snider Fall Score: 35 Fall Risk: Medium Risk Safety Measures: Call light Within Reach, Bed Alarm Zone 1, Side Rails Side Rails x2, Bed position Low and Locked. Fall Precautions: Yellow Socks Report given to [Antonio ORTEZ].
[2020-04-29 11:36] LABS: PHOSPHORUS 4.2 MG/DL (2.5-4.9)
[2020-04-29 11:48] LABS: CHOLESTEROL 121 MG/DL (< 200); FERRITIN 39 NG/ML (8-388); GAMMA GLUTAMYL TRANSPEPTIDASE 53 U/L (5-85); HDL CHOLESTEROL 37 MG/DL (40-60); TRIGLYCERIDES 132 MG/DL (30-150)
[2020-04-29 12:00] VITALS: BP 170/56
[2020-04-29 12:18] LABS: % IRON SATURATION 15 % (15-50); IRON 44 ug/dL (50-175); TOTAL IRON BINDING CAPACITY 297 ug/dL (250-450)
--- NOTE | 2020-04-29 13:03 | Surgery Progress Note ---
Surgery Progress Note Subjective Symptoms: improved, tolerating diet, voiding well, passing flatus Additional Comments no abd pain hungry Objective Last 24 Hour Vital Signs Date Time Temp Pulse Resp B/P (MAP) Pulse Ox O2 Delivery O2 Flow Rate FiO2 04/29/20 12:00 98.2 65 18 170/56 (94) 96 04/29/20 12:00 67 04/29/20 09:00 Room Air 04/29/20 08:47 82 169/55 04/29/20 08:00 98.5 62 18 169/55 (93) 97 04/29/20 07:42 60 04/29/20 04:00 69 04/29/20 04:00 96.5 69 18 152/67 (95) 97 04/29/20 00:00 60 04/29/20 00:00 97.2 60 18 123/63 (83) 97 04/28/20 21:00 Room Air 04/28/20 20:00 97.5 64 18 120/57 (78) 96 04/28/20 20:00 64 04/28/20 17:12 87 123/80 04/28/20 16:00 98.8 87 19 123/80 (94) 96 04/28/20 16:00 66 I&O Intake and Output 04/28/20 04/29/20 19:00 07:00 Intake Total 0 ml Balance 0 ml Intake Oral 0 ml # Voids 1 Cardiovascular: RSR Respiratory: clear Abdomen: soft, non-tender, present bowel sounds, non-distended Extremities: no edema Laboratory Tests Test 04/29/20 07:50 White Blood Count 6.3 K/UL (4.8-10.8) Red Blood Count 3.56 M/UL (4.20-5.40) L Hemoglobin 10.7 G/DL (12.0-16.0) L Hematocrit 30.8 % (37.0-47.0) L Mean Corpuscular Volume 87 FL (80-99) Mean Corpuscular Hemoglobin 30.2 PG (27.0-31.0) Mean Corpuscular Hemoglobin Concent 34.8 G/DL (32.0-36.0) Red Cell Distribution Width 14.6 % (11.6-14.8) Platelet Count 175 K/UL (150-450) Mean Platelet Volume 8.0 FL (6.5-10.1) Neutrophils (%) (Auto) 68.6 % (45.0-75.0) Lymphocytes (%) (Auto) 20.2 % (20.0-45.0) Monocytes (%) (Auto) 8.5 % (1.0-10.0) Eosinophils (%) (Auto) 2.2 % (0.0-3.0) Basophils (%) (Auto) 0.6 % (0.0-2.0) Sodium Level 139 MMOL/L (136-145) Potassium Level 3.4 MMOL/L (3.5-5.1) L Chloride Level 103 MMOL/L (98-107) Carbon Dioxide Level 28 MMOL/L (21-32) Anion Gap 8 mmol/L (5-15) Blood Urea Nitrogen 27 mg/dL (7-18) H Creatinine 1.5 MG/DL (0.55-1.30) H Estimat Glomerular Filtration Rate 32.9 mL/min (>60) Glucose Level 155 MG/DL (74-106) H Hemoglobin A1c 6.5 % (4.3-6.0) H Calcium Level 9.2 MG/DL (8.5-10.1) Phosphorus Level 4.2 MG/DL (2.5-4.9) Magnesium Level 2.1 MG/DL (1.8-2.4) Iron Level 44 ug/dL (50-175) L Total Iron Binding Capacity 297 ug/dL (250-450) Percent Iron Saturation 15 % (15-50) Unsaturated Iron Binding 253 ug/dL (112-346) Ferritin 39 NG/ML (8-388) Total Bilirubin 0.6 MG/DL (0.2-1.0) Gamma Glutamyl Transpeptidase 53 U/L (5-85) Aspartate Amino Transf (AST/SGOT) 92 U/L (15-37) H Alanine Aminotransferase (ALT/SGPT) 93 U/L (12-78) H Alkaline Phosphatase 112 U/L (46-116) Troponin I 0.000 ng/mL (0.000-0.056) Total Protein 6.3 G/DL (6.4-8.2) L Albumin 3.2 G/DL (3.4-5.0) L Globulin 3.1 g/dL Albumin/Globulin Ratio 1.0 (1.0-2.7) Triglycerides Level 132 MG/DL (30-150) Cholesterol Level 121 MG/DL (< 200) LDL Cholesterol 59 mg/dL (<100) HDL Cholesterol 37 MG/DL (40-60) L Cholesterol/HDL Ratio 3.3 (3.3-4.4) Lipase 251 U/L (73-393) Vitamin B12 Level 816 PG/ML (193-986) Folate 90.6 NG/ML (8.6-58.9) H Thyroid Stimulating Hormone (TSH) 0.520 uiU/mL (0.358-3.740) Free Thyroxine 1.38 NG/DL (0.76-1.46) Plan Problems: (1) CHF (congestive heart failure) (2) Hypomagnesemia (3) Anemia (4) CKD (chronic kidney disease) (5) Episode of generalized weakness (6) Arrhythmia (7) Pancreatitis Assessment & Plan: 89F with pancreatitis and elevated lft's etiology of pancreatitis work up npo iv fluids iv abx US abd ordered trend labs will follow with recs thank you pending US labs improved okay for diet as tolerated (8) Syncope (9) Fall (10) Symptomatic bradycardia Geoff Welsh Apr 29, 2020 13:03
--- NOTE | 2020-04-29 13:50 | Diagnostic Imaging Report ---
Indication: Abnormal liver function tests, abnormal renal function tests Technique: Jacinto-scale and duplex images of the upper abdomen were obtained Comparison: none Findings: Gallbladder demonstrates gallstones. No wall thickening or pericholecystic fluid. Sonographic Rinaldi's sign is negative. Common bile duct measures 6 mm in diameter. No intrahepatic biliary ductal dilatation. Liver demonstrates normal echogenicity, no focal abnormality. Portal vein and hepatic veins are patent. Pancreas is unremarkable. Spleen is unremarkable, demonstrates an accessory splenule or a lobule. Left kidney measures 10.2 cm in length. Right kidney measures 10.2 cm length. Both kidneys demonstrate normal echogenicity. There is no hydronephrosis. There are bilateral renal cysts. . Non-aneurysmal abdominal aorta . Impression: Cholelithiasis. Negative for dilated bile ducts Bilateral renal cysts
--- NOTE | 2020-04-29 14:29 | Cardiac Electrophysiology PN ---
Assessment/Plan Assessment/Plan 1. Symptomatic bradycardia. Patient was on Coreg that was discontinued. We will watch patient on telemetry and hopefully this will resolve. EF 65% 2. Hypertension. Patient is on amlodipine 5 mg b.i.d. 3. Hypothyroidism, on Synthroid. 4. Renal failure and azotemia, on IV fluids per Dr. Otoole. 5. Hypomagnesemia. 6. Generalized weakness. 7. Elevated BNP, possible congestive heart failure. EF 65% 8. Elevated liver function tests, possible pancreatitis. Further evaluation by Dr. Welsh. Subjective Subjective Refused labs yesterday but agreed to them today Objective Last 24 Hour Vital Signs Date Time Temp Pulse Resp B/P (MAP) Pulse Ox O2 Delivery O2 Flow Rate FiO2 04/29/20 12:00 98.2 65 18 170/56 (94) 96 04/29/20 12:00 67 04/29/20 09:00 Room Air 04/29/20 08:47 82 169/55 04/29/20 08:00 98.5 62 18 169/55 (93) 97 04/29/20 07:42 60 04/29/20 04:00 69 04/29/20 04:00 96.5 69 18 152/67 (95) 97 04/29/20 00:00 60 04/29/20 00:00 97.2 60 18 123/63 (83) 97 04/28/20 21:00 Room Air 04/28/20 20:00 97.5 64 18 120/57 (78) 96 04/28/20 20:00 64 04/28/20 17:12 87 123/80 04/28/20 16:00 98.8 87 19 123/80 (94) 96 04/28/20 16:00 66 Intake and Output 04/28/20 04/29/20 19:00 07:00 Intake Total 0 ml Balance 0 ml Intake Oral 0 ml # Voids 1 Laboratory Tests Test 04/29/20 07:50 White Blood Count 6.3 K/UL (4.8-10.8) Red Blood Count 3.56 M/UL (4.20-5.40) L Hemoglobin 10.7 G/DL (12.0-16.0) L Hematocrit 30.8 % (37.0-47.0) L Mean Corpuscular Volume 87 FL (80-99) Mean Corpuscular Hemoglobin 30.2 PG (27.0-31.0) Mean Corpuscular Hemoglobin Concent 34.8 G/DL (32.0-36.0) Red Cell Distribution Width 14.6 % (11.6-14.8) Platelet Count 175 K/UL (150-450) Mean Platelet Volume 8.0 FL (6.5-10.1) Neutrophils (%) (Auto) 68.6 % (45.0-75.0) Lymphocytes (%) (Auto) 20.2 % (20.0-45.0) Monocytes (%) (Auto) 8.5 % (1.0-10.0) Eosinophils (%) (Auto) 2.2 % (0.0-3.0) Basophils (%) (Auto) 0.6 % (0.0-2.0) Sodium Level 139 MMOL/L (136-145) Potassium Level 3.4 MMOL/L (3.5-5.1) L Chloride Level 103 MMOL/L (98-107) Carbon Dioxide Level 28 MMOL/L (21-32) Anion Gap 8 mmol/L (5-15) Blood Urea Nitrogen 27 mg/dL (7-18) H Creatinine 1.5 MG/DL (0.55-1.30) H Estimat Glomerular Filtration Rate 32.9 mL/min (>60) Glucose Level 155 MG/DL (74-106) H Hemoglobin A1c 6.5 % (4.3-6.0) H Calcium Level 9.2 MG/DL (8.5-10.1) Phosphorus Level 4.2 MG/DL (2.5-4.9) Magnesium Level 2.1 MG/DL (1.8-2.4) Iron Level 44 ug/dL (50-175) L Total Iron Binding Capacity 297 ug/dL (250-450) Percent Iron Saturation 15 % (15-50) Unsaturated Iron Binding 253 ug/dL (112-346) Ferritin 39 NG/ML (8-388) Total Bilirubin 0.6 MG/DL (0.2-1.0) Gamma Glutamyl Transpeptidase 53 U/L (5-85) Aspartate Amino Transf (AST/SGOT) 92 U/L (15-37) H Alanine Aminotransferase (ALT/SGPT) 93 U/L (12-78) H Alkaline Phosphatase 112 U/L (46-116) Troponin I 0.000 ng/mL (0.000-0.056) Total Protein 6.3 G/DL (6.4-8.2) L Albumin 3.2 G/DL (3.4-5.0) L Globulin 3.1 g/dL Albumin/Globulin Ratio 1.0 (1.0-2.7) Triglycerides Level 132 MG/DL (30-150) Cholesterol Level 121 MG/DL (< 200) LDL Cholesterol 59 mg/dL (<100) HDL Cholesterol 37 MG/DL (40-60) L Cholesterol/HDL Ratio 3.3 (3.3-4.4) Lipase 251 U/L (73-393) Vitamin B12 Level 816 PG/ML (193-986) Folate 90.6 NG/ML (8.6-58.9) H Thyroid Stimulating Hormone (TSH) 0.520 uiU/mL (0.358-3.740) Free Thyroxine 1.38 NG/DL (0.76-1.46) Microbiology Date/Time Source Procedure Growth Status 04/28/20 11:30 Rectum Received Objective HEAD AND NECK: Showed no JVD. LUNGS: Clear. CARDIOVASCULAR: Shows regular S1 and S2 with no gallop or murmur. ABDOMEN: Soft. EXTREMITIES: No pitting edema. Jose J Hurley MD Apr 29, 2020 14:29
--- NOTE | 2020-04-29 15:43 | NUR ---
CASE MANAGEMENT:REVIEW BIBA FROM [facility] SI: SYMPTOMATIC BRADYCARDIA. SYNCOPE ACUTE PANCREATITIS 98.1 56 18 156/62 97% ON RA H/H-9.7/28.7 BUN+29 CR+1.5 AST.ALT+96/90 LIPASE+1180 IS: IV ATIVAN IV LASIX HYDRALAZINE PO CT HEAD CHEST XRAY : TO TELEMETRY
[2020-04-29 16:00] VITALS: BP 111/56
[2020-04-29] MEDS: HydrALAZINE 25mg tab ORAL SCH (17:39)
--- NOTE | 2020-04-29 19:10 | NUR ---
NURSE HAND-OFF REPORT: Important Events on Shift: high BP on 170s, but stabilized. Patient Status: stable, DNR Diet: soft diet, easy chew Pending Orders: n/a Pending Results/Labs:n/a Pending MD notification:n/a Latest Vital Signs: Temperature 98.9 , Pulse 48 , B/P 111 /56 , Respiratory Rate 18 , O2 SAT 99 , Room Air, O2 Flow Rate . Vital Sign Comment: held 1800 BP meds due to decreased BP EKG Rhythm: Sinus Bradycardia Rhythm change?: N MD Notified?: - MD Response: Latest Snider Fall Score: 35 Fall Risk: Medium Risk Safety Measures: Call light Within Reach, Bed Alarm Zone 1, Side Rails Side Rails x2, Bed position Low and Locked. Fall Precautions: Yellow Socks Report given to PÉREZ Dixon.
--- NOTE | 2020-04-29 19:15 | NUR ---
NURSE NOTES: Pt received from PÉREZ Alvarez. Pt is resting comfortably in bed. Pt is A/Ox2 and ambulatory; Pt requires reorientation and is requested to stay in bed. Pt has cardiac monitoring SR and asymptomatic. Pt is breathing unlabored on RA and asymptomatic. Pt has LHand 20G SL patent with skin dry and intact. Pt takes crushed meds in applesauce or easy chew. Bed is locked in lowest position and call light is within reach. Will continue to monitor.
[2020-04-29 20:00] VITALS: BP 123/50
[2020-04-30] VITALS: BP 138/59
[2020-04-30 04:00] VITALS: BP 140/65
--- NOTE | 2020-04-30 07:29 | NUR ---
NURSE HAND-OFF REPORT: Important Events on Shift:Continued plan of care Patient Status: Stable Diet: Soft Diet Pending Orders: Pending Results/Labs:AM Labs Pending MD notification: Latest Vital Signs: Temperature 98.2 , Pulse 65 , B/P 140 /65 , Respiratory Rate 16 , O2 SAT 96 , Room Air, O2 Flow Rate . Vital Sign Comment: VSS EKG Rhythm: Sinus Rhythm Rhythm change?: N MD Notified?: - MD Response: Latest Snider Fall Score: 35 Fall Risk: Medium Risk Safety Measures: Call light Within Reach, Bed Alarm Zone 1, Side Rails Side Rails x2, Bed position Low and Locked. Fall Precautions: Yellow Socks Report given to PÉREZ Tomlinson.
--- NOTE | 2020-04-30 07:39 | NUR ---
NURSE NOTES: Pt received from Fahad ORTEZ, pt in bed sleeping, bed low and locked, call light within reach, no distress or SOB noted.
[2020-04-30 08:00] VITALS: BP 180/63
[2020-04-30 08:08] LABS: BASOPHILS % (AUTO) 0.6 % (0.0-2.0); EOSINOPHILS % (AUTO) 1.7 % (0.0-3.0); HEMATOCRIT 30.5 % (37.0-47.0); HEMOGLOBIN 10.3 G/DL (12.0-16.0); LYMPHOCYTES % (AUTO) 21.7 % (20.0-45.0); MEAN CORPUSCULAR VOLUME 88 FL (80-99); MONOCYTES % (AUTO) 8.2 % (1.0-10.0); NEUTROPHILS % (AUTO) 67.8 % (45.0-75.0); PLATELET COUNT 179 K/UL (150-450); RED BLOOD COUNT 3.45 M/UL (4.20-5.40); RED CELL DISTRIBUTION WIDTH 13.1 % (11.6-14.8); WHITE BLOOD COUNT 7.4 K/UL (4.8-10.8)
[2020-04-30 08:31] LABS: BILIRUBIN,TOTAL 0.6 MG/DL (0.2-1.0); CALCIUM 8.8 MG/DL (8.5-10.1); CREATININE 1.5 MG/DL (0.55-1.30); POTASSIUM 3.4 MMOL/L (3.5-5.1)
[2020-04-30] MEDS: Venlafaxine XR 150mg cap ORAL SCH (10:24)
[2020-04-30] MEDS: HydrALAZINE 25mg tab ORAL SCH ×3 (10:24→22:54)
[2020-04-30] MEDS: Aspirin EC 81mg tab ORAL SCH (10:24)
[2020-04-30] MEDS: Docusate 100mg cap ORAL SCH ×3 (10:24→17:55)
[2020-04-30] MEDS: Levothyroxine 25mcg tab ORAL SCH (10:24)
--- NOTE | 2020-04-30 11:42 | Cardiac Electrophysiology PN ---
Assessment/Plan Assessment/Plan 1. Symptomatic bradycardia. Resolved after Coreg was discontinued. We will watch patient on telemetry EF 65% 2. Hypertension. Patient is on amlodipine 5 mg b.i.d. Hydralazine 25 bid was added. 3. Hypothyroidism, on Synthroid. 4. Renal failure and azotemia, on IV fluids per Dr. Otoole. 5. Hypomagnesemia. 6. Generalized weakness. 7. Elevated BNP, possible congestive heart failure. EF 65% 8. Elevated liver function tests, possible pancreatitis. Further evaluation by Dr. Welsh. Subjective Subjective No una events. BP 180s. No CP or SOB Objective Last 24 Hour Vital Signs Date Time Temp Pulse Resp B/P (MAP) Pulse Ox O2 Delivery O2 Flow Rate FiO2 04/30/20 10:25 65 180/63 04/30/20 10:24 180/63 04/30/20 09:00 Room Air 04/30/20 08:00 97.6 71 16 180/63 (102) 98 04/30/20 08:00 65 04/30/20 04:00 98.2 69 16 140/65 (90) 96 04/30/20 04:00 65 04/30/20 00:00 98.4 70 16 138/59 (85) 95 04/30/20 00:00 69 04/29/20 21:00 Room Air 04/29/20 20:00 72 04/29/20 20:00 98.4 64 18 123/50 (74) 94 04/29/20 17:39 111/56 04/29/20 17:39 48 111/56 04/29/20 16:00 98.9 72 18 111/56 (74) 99 04/29/20 16:00 48 04/29/20 12:00 98.2 65 18 170/56 (94) 96 04/29/20 12:00 67 Intake and Output 04/29/20 04/30/20 19:00 07:00 Intake Total 240 ml 480 ml Balance 240 ml 480 ml Intake Oral 240 ml 480 ml # Voids 3 2 Laboratory Tests Test 04/30/20 07:35 White Blood Count 7.4 K/UL (4.8-10.8) Red Blood Count 3.45 M/UL (4.20-5.40) L Hemoglobin 10.3 G/DL (12.0-16.0) L Hematocrit 30.5 % (37.0-47.0) L Mean Corpuscular Volume 88 FL (80-99) Mean Corpuscular Hemoglobin 29.8 PG (27.0-31.0) Mean Corpuscular Hemoglobin Concent 33.7 G/DL (32.0-36.0) Red Cell Distribution Width 13.1 % (11.6-14.8) Platelet Count 179 K/UL (150-450) Mean Platelet Volume 8.4 FL (6.5-10.1) Neutrophils (%) (Auto) 67.8 % (45.0-75.0) Lymphocytes (%) (Auto) 21.7 % (20.0-45.0) Monocytes (%) (Auto) 8.2 % (1.0-10.0) Eosinophils (%) (Auto) 1.7 % (0.0-3.0) Basophils (%) (Auto) 0.6 % (0.0-2.0) Sodium Level 138 MMOL/L (136-145) Potassium Level 3.4 MMOL/L (3.5-5.1) L Chloride Level 102 MMOL/L (98-107) Carbon Dioxide Level 31 MMOL/L (21-32) Anion Gap 5 mmol/L (5-15) Blood Urea Nitrogen 32 mg/dL (7-18) H Creatinine 1.5 MG/DL (0.55-1.30) H Estimat Glomerular Filtration Rate 32.9 mL/min (>60) Glucose Level 149 MG/DL (74-106) H Calcium Level 8.8 MG/DL (8.5-10.1) Total Bilirubin 0.6 MG/DL (0.2-1.0) Aspartate Amino Transf (AST/SGOT) 77 U/L (15-37) H Alanine Aminotransferase (ALT/SGPT) 78 U/L (12-78) Alkaline Phosphatase 111 U/L (46-116) Total Protein 6.0 G/DL (6.4-8.2) L Albumin 3.0 G/DL (3.4-5.0) L Globulin 3.0 g/dL Albumin/Globulin Ratio 1.0 (1.0-2.7) Amylase Level 95 U/L (25-115) Lipase 489 U/L (73-393) H Microbiology Date/Time Source Procedure Growth Status 04/28/20 11:30 Rectum - Final NO CARBAPENEM-RESISTANT ENTEROBACTERI... Complete 04/28/20 11:30 Rectum VRE Culture - Final NO VANCOMYCIN RESISTANT ENTEROCOCCUS ... Complete 04/28/20 11:30 Nasal Nares MRSA Culture - Final NO METHICILLIN RESISTANT STAPH AUREUS... Complete Objective HEAD AND NECK: Showed no JVD. LUNGS: Clear. CARDIOVASCULAR: Shows regular S1 and S2 with no gallop or murmur. ABDOMEN: Soft. EXTREMITIES: No pitting edema. Jose J Hurley MD Apr 30, 2020 11:42
--- NOTE | 2020-04-30 11:55 | General Progress Note ---
Subjective Date patient seen: Apr 30, 2020 ROS Limited/Unobtainable: No Constitutional: Reports: malaise, weakness Allergies: Coded Allergies: PENICILLINS (Unverified Allergy, Unknown, 11/06/14) Objective Last 24 Hour Vital Signs Date Time Temp Pulse Resp B/P (MAP) Pulse Ox O2 Delivery O2 Flow Rate FiO2 04/30/20 10:25 65 180/63 04/30/20 10:24 180/63 04/30/20 09:00 Room Air 04/30/20 08:00 97.6 71 16 180/63 (102) 98 04/30/20 08:00 65 04/30/20 04:00 98.2 69 16 140/65 (90) 96 04/30/20 04:00 65 04/30/20 00:00 98.4 70 16 138/59 (85) 95 04/30/20 00:00 69 04/29/20 21:00 Room Air 04/29/20 20:00 72 04/29/20 20:00 98.4 64 18 123/50 (74) 94 04/29/20 17:39 111/56 04/29/20 17:39 48 111/56 04/29/20 16:00 98.9 72 18 111/56 (74) 99 04/29/20 16:00 48 04/29/20 12:00 98.2 65 18 170/56 (94) 96 04/29/20 12:00 67 Intake and Output 04/29/20 04/30/20 19:00 07:00 Intake Total 240 ml 480 ml Balance 240 ml 480 ml Intake Oral 240 ml 480 ml # Voids 3 2 Laboratory Tests 04/30/20 07:35: White Blood Count 7.4, Red Blood Count 3.45L, Hemoglobin 10.3L, Hematocrit 30.5L , Mean Corpuscular Volume 88, Mean Corpuscular Hemoglobin 29.8, Mean Corpuscular Hemoglobin Concent 33.7, Red Cell Distribution Width 13.1, Platelet Count 179, Mean Platelet Volume 8.4, Neutrophils (%) (Auto) 67.8, Lymphocytes (%) (Auto) 21.7, Monocytes (%) (Auto) 8.2, Eosinophils (%) (Auto) 1.7, Basophils (%) (Auto) 0.6, Sodium Level 138, Potassium Level 3.4L, Chloride Level 102, Carbon Dioxide Level 31, Anion Gap 5, Blood Urea Nitrogen 32H, Creatinine 1.5H, Estimat Glomerular Filtration Rate 32.9, Glucose Level 149H, Calcium Level 8.8, Total Bilirubin 0.6, Aspartate Amino Transf (AST/SGOT) 77H, Alanine Aminotransferase (ALT/SGPT) 78, Alkaline Phosphatase 111, Total Protein 6.0L, Albumin 3.0L, Globulin 3.0, Albumin/Globulin Ratio 1.0, Amylase Level 95, Lipase 489H Height (Feet): 5 Height (Inches): 2.00 Weight (Pounds): 142 General Appearance: no apparent distress Cardiovascular: normal rate Respiratory/Chest: decreased breath sounds Abdomen: soft Assessment/Plan Problem List: (1) Symptomatic bradycardia ICD Codes: R00.1 - Bradycardia, unspecified SNOMED: 45068222, 223579979 (2) CKD (chronic kidney disease) ICD Codes: N18.9 - Chronic kidney disease, unspecified SNOMED: 673592978 (3) Syncope ICD Codes: R55 - Syncope and collapse SNOMED: 461495757, 473293242 (4) Arrhythmia ICD Codes: I49.9 - Cardiac arrhythmia, unspecified SNOMED: 07266467 (5) Hypomagnesemia ICD Codes: E83.42 - Hypomagnesemia SNOMED: 405920852 (6) Anemia ICD Codes: D64.9 - Anemia, unspecified SNOMED: 987631977 Status: stable Assessment/Plan: April 30: Blood pressure somewhat elevated. Hydralazine added and adjusted. Patient remained stable. Needed Covid test prior to acceptance by ECF. Discussed with case management. IV potassium supplement ordered. Discussed with RN and the need to do the blood draw today as soon as possible Continue per consultants Will discuss the plan with the patient's responsible libertarian Patient remains DNR Continue per orders David Otoole MD Apr 30, 2020 11:55
[2020-04-30 12:00] VITALS: BP 141/55
--- NOTE | 2020-04-30 14:34 | Cardiology Report ---
APPROVED REPORT EKG Measurement Heart [id number] TN 186P [id number] <Conclusion> Sinus bradycardia Left axis deviation Low voltage QRS Cannot rule out Anterior infarct, age undetermined Abnormal ECG
--- NOTE | 2020-04-30 15:54 | Surgery Progress Note ---
Surgery Progress Note Subjective Symptoms: improved, pain absent, tolerating diet, voiding well, passing flatus, BM Objective Last 24 Hour Vital Signs Date Time Temp Pulse Resp B/P (MAP) Pulse Ox O2 Delivery O2 Flow Rate FiO2 04/30/20 14:32 141/55 04/30/20 12:00 98.1 73 18 141/55 (83) 98 04/30/20 12:00 70 04/30/20 10:25 65 180/63 04/30/20 10:24 180/63 04/30/20 09:00 Room Air 04/30/20 08:00 97.6 71 16 180/63 (102) 98 04/30/20 08:00 65 04/30/20 04:00 98.2 69 16 140/65 (90) 96 04/30/20 04:00 65 04/30/20 00:00 98.4 70 16 138/59 (85) 95 04/30/20 00:00 69 04/29/20 21:00 Room Air 04/29/20 20:00 72 04/29/20 20:00 98.4 64 18 123/50 (74) 94 04/29/20 17:39 111/56 04/29/20 17:39 48 111/56 04/29/20 16:00 98.9 72 18 111/56 (74) 99 04/29/20 16:00 48 I&O Intake and Output 04/29/20 04/30/20 18:59 06:59 Intake Total 240 ml 480 ml Balance 240 ml 480 ml Intake Oral 240 ml 480 ml # Voids 3 2 Cardiovascular: RSR Respiratory: clear Abdomen: soft, non-tender, present bowel sounds, non-distended Extremities: no edema, no tenderness, no cyanosis Laboratory Tests Test 04/30/20 07:35 White Blood Count 7.4 K/UL (4.8-10.8) Red Blood Count 3.45 M/UL (4.20-5.40) L Hemoglobin 10.3 G/DL (12.0-16.0) L Hematocrit 30.5 % (37.0-47.0) L Mean Corpuscular Volume 88 FL (80-99) Mean Corpuscular Hemoglobin 29.8 PG (27.0-31.0) Mean Corpuscular Hemoglobin Concent 33.7 G/DL (32.0-36.0) Red Cell Distribution Width 13.1 % (11.6-14.8) Platelet Count 179 K/UL (150-450) Mean Platelet Volume 8.4 FL (6.5-10.1) Neutrophils (%) (Auto) 67.8 % (45.0-75.0) Lymphocytes (%) (Auto) 21.7 % (20.0-45.0) Monocytes (%) (Auto) 8.2 % (1.0-10.0) Eosinophils (%) (Auto) 1.7 % (0.0-3.0) Basophils (%) (Auto) 0.6 % (0.0-2.0) Sodium Level 138 MMOL/L (136-145) Potassium Level 3.4 MMOL/L (3.5-5.1) L Chloride Level 102 MMOL/L (98-107) Carbon Dioxide Level 31 MMOL/L (21-32) Anion Gap 5 mmol/L (5-15) Blood Urea Nitrogen 32 mg/dL (7-18) H Creatinine 1.5 MG/DL (0.55-1.30) H Estimat Glomerular Filtration Rate 32.9 mL/min (>60) Glucose Level 149 MG/DL (74-106) H Calcium Level 8.8 MG/DL (8.5-10.1) Total Bilirubin 0.6 MG/DL (0.2-1.0) Aspartate Amino Transf (AST/SGOT) 77 U/L (15-37) H Alanine Aminotransferase (ALT/SGPT) 78 U/L (12-78) Alkaline Phosphatase 111 U/L (46-116) Total Protein 6.0 G/DL (6.4-8.2) L Albumin 3.0 G/DL (3.4-5.0) L Globulin 3.0 g/dL Albumin/Globulin Ratio 1.0 (1.0-2.7) Amylase Level 95 U/L (25-115) Lipase 489 U/L (73-393) H Plan Problems: (1) CHF (congestive heart failure) (2) Hypomagnesemia (3) Anemia (4) CKD (chronic kidney disease) (5) Episode of generalized weakness (6) Arrhythmia (7) Pancreatitis Assessment & Plan: 89F with pancreatitis and elevated lft's etiology of pancreatitis work up npo iv fluids iv abx US abd ordered trend labs will follow with recs thank you pending US labs improved okay for diet as tolerated Gallbladder demonstrates gallstones. No wall thickening or pericholecystic fluid. Sonographic Rinaldi's sign is negative. Common bile duct measures 6 mm in diameter. No intrahepatic biliary ductal dilatation. Liver demonstrates normal echogenicity, no focal abnormality. Portal vein and hepatic veins are patent. Pancreas is unremarkable. Spleen is unremarkable, demonstrates an accessory splenule or a lobule. Left kidney measures 10.2 cm in length. Right kidney measures 10.2 cm length. Both kidneys demonstrate normal echogenicity. There is no hydronephrosis. There are bilateral renal cysts. . Non-aneurysmal abdominal aorta . Impression: Cholelithiasis. Negative for dilated bile ducts Bilateral renal cysts diet as tolerated d/c planning (8) Syncope (9) Fall (10) Symptomatic bradycardia Geoff Welsh Apr 30, 2020 15:54
[2020-04-30 16:00] VITALS: BP 130/58
--- NOTE | 2020-04-30 18:47 | NUR ---
NURSE HAND-OFF REPORT: Important Events on Shift:[No una events, pt bp high in morning but steadily normalized. gait continues to be steady] Patient Status: [in bed awake, resting, and stable] Diet: [soft easy chew] Pending Orders: [] Pending Results/Labs:[] Pending MD notification:[] Latest Vital Signs: Temperature 97.9 , Pulse 84 , B/P 129 /80 , Respiratory Rate 18 , O2 SAT 96 , Room Air, O2 Flow Rate . Vital Sign Comment: [] EKG Rhythm: Sinus Rhythm Rhythm change?: N MD Notified?: - MD Response: Latest Snider Fall Score: 35 Fall Risk: Medium Risk Safety Measures: Call light Within Reach, Bed Alarm Zone 1, Side Rails Side Rails x2, Bed position Low and Locked. Fall Precautions: Yellow Socks Report given to [pending rn assignment]. Addendum: 04/30/20 at 1999 by Bushra Hoyt RN Report given to Jhonny Frye
--- NOTE | 2020-04-30 19:35 | NUR ---
NURSE NOTES: Receive a report from PÉREZ Tomlinson. Pt is awake but disoriented, watching TV. No acute distress noted. Provide fall precaution. On bed alarm. Call light within reach. Will continue to monitor.
[2020-04-30 20:00] VITALS: BP 140/53
[2020-05-01] VITALS: BP 114/59
--- NOTE | 2020-05-01 00:30 | NUR ---
NURSE NOTES: Receive a report from PÉREZ Zafar. Addendum: 05/01/20 at 0108 by Omer Barry RN INCORRECT charting
[2020-05-01 04:00] VITALS: BP 130/53
[2020-05-01] MEDS: HydrALAZINE 25mg tab ORAL SCH ×3 (05:53→13:36)
--- NOTE | 2020-05-01 07:08 | NUR ---
NURSE HAND-OFF REPORT: Important Events on Shift: no acute distress/ no syncope episode Patient Status: [stable] Diet: [regular easy chew] Pending Orders: [] Pending Results/Labs:[] Pending MD notification:[] Latest Vital Signs: Temperature 98.2 , Pulse 69 , B/P 130 /53 , Respiratory Rate 18 , O2 SAT 95 , Room Air, O2 Flow Rate . Vital Sign Comment: [] EKG Rhythm: Sinus Rhythm Rhythm change?: N MD Notified?: - MD Response: Latest Snider Fall Score: 35 Fall Risk: Medium Risk Safety Measures: Call light Within Reach, Bed Alarm Zone 1, Side Rails Side Rails x2, Bed position Low and Locked. Fall Precautions: Yellow Socks
--- NOTE | 2020-05-01 07:25 | NUR ---
NURSE NOTES: Received report from PÉREZ Tello. Pt is resting in bed calm and comfortable. Pt is A/A/Ox2 and able to follow simple commands and verbalize needs. requires reorientation. ambulates with assistance. On cardiac monitoring SR and asymptomatic. Breathing is unlabored and even. on RA with good saturation. PIV on LHand 20G SL patent and intact. skin dry and intact. Bed is locked in lowest position and call light is within reach. siderails are upx3. bed brakes and lock engaged. Will continue to monitor.
--- NOTE | 2020-05-01 07:30 | NUR ---
NURSE HAND-OFF REPORT: Important Events on Shift: no issues Patient Status: [stable] Diet: [regular easy chew] Pending Orders: [] Pending Results/Labs:[] Pending MD notification:[] Latest Vital Signs: Temperature 98.2 , Pulse 69 , B/P 130 /53 , Respiratory Rate 18 , O2 SAT 95 , Room Air, O2 Flow Rate . Vital Sign Comment: [] EKG Rhythm: Sinus Rhythm Rhythm change?: N MD Notified?: - MD Response: Latest Snider Fall Score: 35 Fall Risk: Medium Risk Safety Measures: Call light Within Reach, Bed Alarm Zone 1, Side Rails Side Rails x2, Bed position Low and Locked. Fall Precautions: Yellow Socks Report given to Lyly. Round is made.
[2020-05-01 08:00] VITALS: BP 121/50
[2020-05-01] MEDS: Levothyroxine 25mcg tab ORAL SCH (08:11)
[2020-05-01] MEDS: Docusate 100mg cap ORAL SCH ×3 (08:11→13:36)
[2020-05-01] MEDS: Aspirin EC 81mg tab ORAL SCH (08:11)
[2020-05-01] MEDS: Venlafaxine XR 150mg cap ORAL SCH (08:12)
--- NOTE | 2020-05-01 08:38 | NUR ---
CASE MANAGEMENT:REVIEW 05/01/20 SI: SYMPTOMATIC BRADYCARDIA CKD. SYNCOPE. ARRHYTHMIA. ANEMIA 98.1 73 18 141/55 98% ON RA IS: HYDRALAZINE PO Q8HRS EFFEXOR PO QD SYNTHROID PO QD ASA PO QD PROTONIX PO BID NORVASC PO BID : TELEMETRY STATUS DCP: FROM [facility]
--- NOTE | 2020-05-01 10:33 | General Progress Note ---
Subjective Date patient seen: May 01, 2020 ROS Limited/Unobtainable: Yes Allergies: Coded Allergies: PENICILLINS (Unverified Allergy, Unknown, 11/06/14) Objective Last 24 Hour Vital Signs Date Time Temp Pulse Resp B/P (MAP) Pulse Ox O2 Delivery O2 Flow Rate FiO2 05/01/20 09:29 Room Air 05/01/20 09:27 74 05/01/20 08:13 74 121/50 05/01/20 08:00 98.4 74 20 121/50 (73) 94 05/01/20 05:53 130/53 05/01/20 04:29 69 05/01/20 04:00 98.2 72 18 130/53 (78) 95 05/01/20 00:42 72 05/01/20 00:00 99.1 73 18 114/59 (77) 96 04/30/20 22:54 140/53 04/30/20 21:00 Room Air 04/30/20 20:05 71 04/30/20 20:00 98.8 74 18 140/53 (82) 95 04/30/20 17:56 84 129/80 04/30/20 16:00 97.9 76 18 130/58 (82) 96 04/30/20 16:00 75 04/30/20 14:32 141/55 04/30/20 12:00 98.1 73 18 141/55 (83) 98 04/30/20 12:00 70 Intake and Output 04/30/20 05/01/20 19:00 07:00 Intake Total 450 ml Balance 450 ml Intake Oral 450 ml # Voids 2 1 Current Medications Medications (Trade) Dose Ordered Sig/Allen Route PRN Reason Start Time Stop Time Status Last Admin Dose Admin Acetaminophen (Tylenol) 500 mg Q4H PRN ORAL Mild Pain (Pain Scale 1-3) 04/28/20 10:45 05/28/20 10:44 Amlodipine Besylate (Norvasc) 5 mg BID ORAL 04/28/20 11:00 05/28/20 10:59 05/01/20 08:13 Aspirin (Ecotrin) 81 mg DAILY ORAL 04/29/20 09:00 06/13/20 08:59 05/01/20 08:11 Docusate Sodium (Colace) 100 mg TID ORAL 04/30/20 13:00 05/28/20 17:59 05/01/20 08:11 Haloperidol Lactate (Haldol) 2 mg Q4H PRN IM Agitation 04/28/20 13:45 06/12/20 13:44 04/28/20 15:27 Hydralazine HCl (Apresoline) 25 mg Q8HR ORAL 04/30/20 14:00 07/28/20 17:59 05/01/20 05:53 Levothyroxine Sodium (Synthroid) 25 mcg DAILY ORAL 04/29/20 09:00 05/29/20 08:59 05/01/20 08:11 Pantoprazole (Protonix) 40 mg BID ORAL 04/28/20 11:00 05/29/20 10:59 05/01/20 08:11 Venlafaxine HCl (Effexor-XR) 150 mg DAILY ORAL 04/29/20 09:00 07/28/20 08:59 05/01/20 08:12 Height (Feet): 5 Height (Inches): 2.00 Weight (Pounds): 142 General Appearance: no apparent distress Assessment/Plan Problem List: (1) Symptomatic bradycardia ICD Codes: R00.1 - Bradycardia, unspecified SNOMED: 57810886, 190756113 (2) CKD (chronic kidney disease) ICD Codes: N18.9 - Chronic kidney disease, unspecified SNOMED: 728188952 (3) Syncope ICD Codes: R55 - Syncope and collapse SNOMED: 721489771, 986076751 (4) Arrhythmia ICD Codes: I49.9 - Cardiac arrhythmia, unspecified SNOMED: 06387923 (5) Hypomagnesemia ICD Codes: E83.42 - Hypomagnesemia SNOMED: 834233631 (6) Anemia ICD Codes: D64.9 - Anemia, unspecified SNOMED: 160364599 Status: stable Assessment/Plan: May 01: Patient stable. Examined, meds reviewed. Discharge back to ECF. April 30: Blood pressure somewhat elevated. Hydralazine added and adjusted. Patient remained stable. Needed Covid test prior to acceptance by ECF. Discussed with case management. IV potassium supplement ordered. Discussed with RN and the need to do the blood draw today as soon as possible Continue per consultants Will discuss the plan with the patient's responsible libertarian Patient remains DNR Continue per orders David Otoole MD May 01, 2020 10:33
[2020-05-01] MEDS ORDERED: HYDRALAZINE HCL25 M1 ORAL (10:37)
[2020-05-01] MEDS ORDERED: SYNTHROID25 MCG ORAL (10:37)
[2020-05-01] MEDS ORDERED: COLACE100 MG ORAL (10:37)
[2020-05-01] MEDS ORDERED: EFFEXOR-XR150 MG ORAL (10:37)
[2020-05-01] MEDS ORDERED: PANTOPRAZOLE SO40 MG ORAL (10:37)
[2020-05-01] MEDS ORDERED: NORVASC5 MG ORAL (10:37)
[2020-05-01] MEDS ORDERED: ASPIRIN EC81 MG ORAL (10:37)
--- NOTE | 2020-05-01 10:39 | Discharge Instructions ---
Discharge Instructions Discharge Instructions Follow up with: fu with PMD at [facility] Diet: 2 GM sodium (low sodium) Special Instructions Fall precaution Skin care Continue hospital medication Further change in medication by PMD Please call my office if there is any question [phone]. Dr. David Otoole For Congestive Heart Failure Reminder Report to your physician any weight gain of 5 pounds or more in one week. David Otoole MD May 01, 2020 10:39
--- NOTE | 2020-05-01 11:28 | NUR ---
NURSE NOTES: SENT RAPID SWAB TO THE LAB FOR PLACEMENT. WILL CONT TO MONITOR.
[2020-05-01 12:09] VITALS: BP 125/54
--- NOTE | 2020-05-01 13:23 | NUR ---
*-*DISCHARGE PLANNED*-* PATIENT HAS BEEN ACCEPTED AND WILL BE DISCHARGED BACK TO: [facility]. P: [phone] FOR NURSE TO NURSE REPORT ROOM# 412 [facility] SET FOR 3:20PM S/W POLA [id number] PLACED A CALL TO PATIENTS FABIANA LOZANO, NO ANSWER, LEFT A VOICE MESSAGE IN REGARDS TO DISCHARGE PLAN.
--- NOTE | 2020-05-01 13:52 | NUR ---
NURSE NOTES: INFORMED NEXT OF [facility], [place] FOR THE DISCHARGE. REPORT GIVEN TO PEGGY @ [facility]. AWAITING FOR AMBULANCE. PATIENT APPEARS TO BE CONFUSED AND WANDERS @ THIS TIME. ABLE TO FOLLOW COMMANDS. PATIENT AMBULATES WITH ONE STAFF ASSIST. WILL CONT TO MONITOR.
--- NOTE | 2020-05-01 14:21 | Cardiac Electrophysiology PN ---
Assessment/Plan Assessment/Plan 1. Symptomatic bradycardia. Resolved after Coreg was discontinued. EF 65% 2. Hypertension. Patient is on amlodipine 5 mg b.i.d and Hydralazine 25 bid added. 3. Hypothyroidism, on Synthroid. 4. Renal failure and azotemia, on IV fluids per Dr. Otoole. 5. Hypomagnesemia. 6. Generalized weakness. 7. Elevated BNP, possible congestive heart failure. EF 65% 8. Elevated liver function tests, possible pancreatitis. Further evaluation by Dr. Welsh. DC back to SN Subjective Subjective No una events. BP better. No CP or SOB. DC back to SNIF pending today Objective Last 24 Hour Vital Signs Date Time Temp Pulse Resp B/P (MAP) Pulse Ox O2 Delivery O2 Flow Rate FiO2 05/01/20 13:36 125/54 05/01/20 12:09 98.6 73 19 125/54 (77) 95 05/01/20 12:00 74 05/01/20 09:29 Room Air 05/01/20 09:27 74 05/01/20 08:13 74 121/50 05/01/20 08:00 98.4 74 20 121/50 (73) 94 05/01/20 05:53 130/53 05/01/20 04:29 69 05/01/20 04:00 98.2 72 18 130/53 (78) 95 05/01/20 00:42 72 05/01/20 00:00 99.1 73 18 114/59 (77) 96 04/30/20 22:54 140/53 04/30/20 21:00 Room Air 04/30/20 20:05 71 04/30/20 20:00 98.8 74 18 140/53 (82) 95 04/30/20 17:56 84 129/80 04/30/20 16:00 97.9 76 18 130/58 (82) 96 04/30/20 16:00 75 04/30/20 14:32 141/55 Intake and Output 04/30/20 05/01/20 19:00 07:00 Intake Total 450 ml Balance 450 ml Intake Oral 450 ml # Voids 2 1 Microbiology Date/Time Source Procedure Growth Status 05/01/20 11:20 Nasopharynx SARS-CoV-2 RdRp Gene Assay - Final Complete Objective HEAD AND NECK: No JVD. LUNGS: Clear. CARDIOVASCULAR: Shows regular S1 and S2 with no gallop or murmur. ABDOMEN: Soft. EXTREMITIES: No pitting edema. Jose J Hurley MD May 01, 2020 14:21
[2020-05-01 16:00] VITALS: BP 131/64
--- NOTE | 2020-05-01 17:10 | NUR ---
NURSE NOTES: discharged back to [facility]. removed IV access. personal belongings noted. patient unable to sign. air sampling and monitoring removed. in stable condition. vss taken and recorded.
[2020-05-01] MEDS ORDERED: NS 275ml ONE (17:12)
--- NOTE | 2020-05-01 18:35 | Surgery Progress Note ---
Surgery Progress Note Subjective Additional Comments late entry improved no n/v/fc tolerating diet no pain d/c planning no complaints and states much better now Objective Last 24 Hour Vital Signs Date Time Temp Pulse Resp B/P (MAP) Pulse Ox O2 Delivery O2 Flow Rate FiO2 05/01/20 16:00 96.7 81 18 131/64 (86) 96 05/01/20 13:36 125/54 05/01/20 12:09 98.6 73 19 125/54 (77) 95 05/01/20 12:00 74 05/01/20 09:29 Room Air 05/01/20 09:27 74 05/01/20 08:13 74 121/50 05/01/20 08:00 98.4 74 20 121/50 (73) 94 05/01/20 05:53 130/53 05/01/20 04:29 69 05/01/20 04:00 98.2 72 18 130/53 (78) 95 05/01/20 00:42 72 05/01/20 00:00 99.1 73 18 114/59 (77) 96 04/30/20 22:54 140/53 04/30/20 21:00 Room Air 04/30/20 20:05 71 04/30/20 20:00 98.8 74 18 140/53 (82) 95 I&O Intake and Output 04/30/20 05/01/20 19:00 07:00 Intake Total 450 ml Balance 450 ml Intake Oral 450 ml # Voids 2 1 Cardiovascular: RSR Respiratory: clear Abdomen: soft, non-tender, present bowel sounds Extremities: no edema, no tenderness, no cyanosis Plan Problems: (1) CHF (congestive heart failure) (2) Hypomagnesemia (3) Anemia (4) CKD (chronic kidney disease) (5) Episode of generalized weakness (6) Arrhythmia (7) Pancreatitis Assessment & Plan: 89F with pancreatitis and elevated lft's etiology of pancreatitis work up npo iv fluids iv abx US abd ordered trend labs will follow with recs thank you pending US labs improved okay for diet as tolerated Gallbladder demonstrates gallstones. No wall thickening or pericholecystic fluid. Sonographic Rinaldi's sign is negative. Common bile duct measures 6 mm in diameter. No intrahepatic biliary ductal dilatation. Liver demonstrates normal echogenicity, no focal abnormality. Portal vein and hepatic veins are patent. Pancreas is unremarkable. Spleen is unremarkable, demonstrates an accessory splenule or a lobule. Left kidney measures 10.2 cm in length. Right kidney measures 10.2 cm length. Both kidneys demonstrate normal echogenicity. There is no hydronephrosis. There are bilateral renal cysts. . Non-aneurysmal abdominal aorta . Impression: Cholelithiasis. Negative for dilated bile ducts Bilateral renal cysts diet as tolerated d/c planning (8) Syncope (9) Fall (10) Symptomatic bradycardia Geoff Welsh May 01, 2020 18:35
--- NOTE | 2020-05-02 13:33 | Discharge Summary ---
Discharge Summary Discharge Summary _ DATE OF ADMISSION: 04/27/2020 DATE OF DISCHARGE: 05/01/2020 DISCHARGED BY: Dr. Otoole REASON FOR ADMISSION: 89 years old female, resident of detention facility, with past medical history of hypertension, diabetes, chronic kidney disease, hypothyroidism, dysli pidemia , presented for evaluation after syncopal episode. Patient with DNR/DNI status. Patient had a conservator. Patient reported that she felt dizzy and almost passed out. Patient also reported gradual onset of the headache associated with nausea At the time of presentation to ED she reported that her symptoms resolved No chest pain or shortness of breath. No blood in stool or urine. No abdominal pain, dysuria or flank pain. No fevers or chills. No dysuria or flank pain. Patient was on Coreg . Upon evaluation vital signs revealed pulse rate 56 , blood pressure 156/62, pulse oximetry was 97% on room air. EKG revealed sinus bradycardia , no acute ischemic changes Laboratory work-up revealed no leukocytosis , hemoglobin 9.7, hematocrit 28.7, platelet count 151. BUN 29, creatinine 1.5. Glucose 178. Magnesium 1.0 , potassium 4.2 . AST 96, ALT 90. Lipase 1180 Troponin 0.018 , pro BNP 1310 TSH within normal range Urinalysis revealed +3 protein , no evidence of urinary tract infection. Chest x-ray demonstrated no acute cardiopulmonary pathology. CT of the head revealed no acute intracranial abnormality. In emergency department patient received 1 dose of Lasix , 1 dose of hydralazine , started on replacement of magnesium and admitted for further management. CONSULTANTS: information assurance analyst Dr. Horton surgery Dr. Welsh [facility]SE: Patient admitted to monitored floor. Patient started on slow hydration. Beta-donnie was hold. Blood pressure was managed with amlodipine and hydralazine . Magnesium was further replaced. Patient initially was kept n.p.o. and slowly started on diet as tolerated Renal parameters and electrolytes were closely monitored, electrolytes were further corrected as needed . Prior to discharge magnesium 2.1 . Creatinine remained at baseline 1.5 Hemoglobin and hematocrit were closely monitored with goal to keep hemoglobin above 7. Anemia work-up was consistent with anemia of iron deficiency. Prior to discharge hemoglobin 10.3 , hematocrit 30.5. Consider starting iron supplements in the facility if hemoglobin below 10. Symptomatic bradycardia resolved after Coreg was discontinued Echocardiogram revealed preserved ejection fraction 65%. Blood pressure was managed with amlodipine and hydralazine , and remained stable. Synthroid continued. LFT and lipase were follow-up. Abdominal ultrasound revealed cholelithiasis , no evidence of dilated bile ducts. Bilateral renal cysts. AST , ALT and lipas4 trending down. Abdominal exam remained stable. Patient was able to tolerate diet . Symptomatic treatment provided as needed. Patient clinically stabilized and was ready for ddischarge to detention facility for continuation of care. FINAL DIAGNOSES: Symptomatic bradycardia Chronic kidney disease Syncope Arrhythmia Hypomagnesemia Anemia CHF Episode of generalized weakness Pancreatitis DISCHARGE MEDICATIONS: See Medication Reconciliation list. DISCHARGE INSTRUCTIONS: Patient was discharged to the detention facility. Follow up with medical doctor at the facility. I have been assigned to dictate discharge summary for this account. I was not involved in the patient's management. Judit Oseguera NP May 02, 2020 13:33
--- NOTE | 2020-05-02 20:23 | CDS Physician Query ---
Clarification is required for compliance, coding accuracy, and to reflect severity of illness for this patient Dear Dr. David Otoole MD Date: 05/02/20 CDIS Name: Avel Jang REASON FOR ADMISSION: 89 years old female, resident of nursing home facility, with past medical history of hypertension, diabetes, chronic kidney disease, hypothyroidism, dyslipidemia , presented for evaluation after syncopal episode. Patient with DNR/DNI status. FINAL DIAGNOSES: Symptomatic bradycardia, Chronic kidney disease, Episode of generalized weakness Syncope, Arrhythmia, Hypomagnesemia, Anemia, CHF, Pancreatitis Clinical findings show: VITALS (POA): Pulse 56, RR 14, BP156/62, CT Head no Contrast: FINDINGS: Brain: No intracranial hemorrhage, mass-effect, or edema. Parenchymal atrophy. Mild chronic microvascular ischemic changes. IMPRESSION: 1. No acute intracranial abnormality. 2. Parenchymal atrophy. Mild chronic microvascular ischemic changes. "Syncope" documented in "FINAL DIAGNOSES" Please specify the cause: [] Dehydration [] Orthostatic Hypotension [] Autonomic Imbalance [] Autonomic Dysfunction [] Psychogenic [] Shock [] Dialysis Disequilibrium Syndrome [] Heat [] Other: [] Unable to determine Present on Admission: [] Yes [] No [] Clinically Undetermined Physician signature Date Please also document in your Progress Notes and/or Discharge Summary and indicate if the condition was present on admission. MTDD
--- NOTE | 2020-05-04 13:28 | Cardiology Report ---
APPROVED REPORT EXAM: Two-dimensional and M-mode echocardiogram with Doppler and color Doppler. INDICATION Syncope M-Mode DIMENSIONS IVSd1.1 (0.7-1.1cm)Left Atrium (MM)3.4 (1.6-4.0cm) LVDd4.1 (3.5-5.6cm)Aortic Root2.9 (2.0-3.7cm) PWd1.0 (0.7-1.1cm)Aortic Cusp Exc.1.7 (1.5-2.0cm) IVSs1.8 cmEPSS0.5 (>1.0cm) LVDs2.8 (2.5-4.0cm) PWs1.4 cm <Conclusion> Technically difficult study due to poor acoustic windows. Study quality precludes accurate assessment of regional wall motion. Normal left ventricular chamber size, systolic function and wall motion. Left ventricular ejection fraction estimated to be 65 %. No evidence of left ventricular hypertrophy. Anterior Echo-free space, may be due to pericardial fat or effusion. All other cardiac chamber sizes are within normal limits. Focal aortic valve sclerosis with adequate cusp excursion. Thickened mitral valve leaflets with normal excursion. Mild mitral annulus and aortic root calcification. Pulmonic valve not well visualized. Normal tricuspid valve structure. IVC is normal in size with physiological collapse. A color flow and spectral Doppler study was performed and revealed: Trace aortic regurgitation. No mitral regurgitation. Mitral diastolic velocities suggest mild left ventricular diastolic dysfunction (Grade I). No tricuspid regurgitation.
== END 2020-05-01 17:13 | DRG 312 ==
LOC: EDBD 20:24 → EMR 21:30 → 2E 21:34 → EDBEDREQ 04-28 04:36 → 2E 04-28 06:54
DX: R55 Syncope and collapse (principal); K85.90 Acute pancreatitis without necrosis or infection, unspecified; I13.0 Hypertensive heart and chronic kidney disease with heart failure and stage 1 through stage 4 chronic kidney disease, or unspecified chronic kidney disease; R00.1 Bradycardia, unspecified; K80.20 Calculus of gallbladder without cholecystitis without obstruction; E86.0 Dehydration; I95.9 Hypotension, unspecified; N18.9 Chronic kidney disease, unspecified; E83.42 Hypomagnesemia; E03.9 Hypothyroidism, unspecified; I50.9 Heart failure, unspecified; E78.5 Hyperlipidemia, unspecified; Z88.0 Allergy status to penicillin; Z66 Do not resuscitate; E11.22 Type 2 diabetes mellitus with diabetic chronic kidney disease; Z79.4 Long term (current) use of insulin; Z79.82 Long term (current) use of aspirin; D64.9 Anemia, unspecified; R53.1 Weakness; Z91.81 History of falling
CPT/HCPCS: 36415; 70450; 71045; 76700; 80053; 80061; 81003; 82150; 82550; 82607; 82728; 82746; 82977; 83036; 83540; 83550; 83690; 83735; 83880; 84100; 84439; 84443; 84484; 85025; 87081; 93005; 93306; 96374; 96375; 99285; U0002